=== PATIENT | female | born 1960 | race Caucasian/White ===

== ENCOUNTER 2020-01-18 00:50 | Inpatient (IN) | payer MEDICARE, MEDICAID, SELFPAY ==
[2020-01-18] VITALS (147 sets, daily range): BP systolic 86–184; BP diastolic 45–139; PULSE 55–129; RESP 12–18; TEMP 36.4–37.4; O2SAT 88–100; BMI 60.2; BMI 52.3
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
--- NOTE | 2020-01-18 01:04 | ECG_ITS ---
Measurements Intervals [place] Rate: 96 P: 66 NV: 141 QRS: 72 QRSD: 83 T: 40 QT: 347 QTc: 440 SINUS RHYTHM LOW QRS VOLTAGE IN PRECORDIAL LEADS [QRS DEFLECTION < 1.0 mV IN CHEST LEADS] POSSIBLE RIGHT VENTRICULAR CONDUCTION DELAY [RSR (QR) IN V1/V2] Compared to ECG 11/01/2018 14:57:16 Low QRS voltage now present Atrial fibrillation no longer present Electronically Signed On 01-18-2020 17:10:33 CDT by Terrance Hancock M.D. [email or web address]
[2020-01-18 01:17] LABS: ABG PCO2 77.3 mmHg (35-45); ABG PH Result 7.28 (7.35-7.45); Arterial Blood Gas Hematocrit 41.7 % (37-47); Base Excess ABG 6.9 mmol/L (-2.0-2.0); Blood Gas Allen Test Pos; Blood Gas Sample Site Radial, right; Blood Gas Sample Type Arterial; HCO3 ABG 36.6 mmol/L (22-26); PO2 ABG 63.4 mmHg (80.0-100.0)
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
[2020-01-18] MEDS: sodium chloride 0.9% 1,000 ML 999 ML IV (01:25)
[2020-01-18] MEDS: succinylcholine 20 mg/mL SDV 10mL 200 MG IVP (01:29)
[2020-01-18 01:33] LABS: Basophils # 0.1 10^3/uL (0.0-0.1); Basophils % 0.5 %; Eosinophils # 0.2 10^3/uL (0.0-0.8); Eosinophils % 1.7 %; Hematocrit 46.9 % (37.0-47.0); Hemoglobin 14.1 g/dL (11.5-15.3); Lymphocytes # 1.9 10^3/uL (0.8-4.8); Mean Corpuscular HGB Conc 30.1 g/dL (30.0-36.0); Mean Corpuscular Hemoglobin 29.4 pg (28.0-34.0); Mean Corpuscular Volume 97.9 fL (81-99); Mean Platelet Volume 10.3 fL (7.4-10.4); Monocytes # 0.6 10^3/uL (0.2-0.9); Monocytes % 6.3 %; Neutrophils # 7.1 10^3/uL (1.8-7.7); Neutrophils % 72.1 %; Nucleated Red Blood Cells % 0 %; Platelet Count 281 10^3/cmm (130-400); Red Blood Count 4.79 10^6/uL (4.1-5.3); Red Cell Distribution Width 15.2 % (12.1-15.1); White Blood Count 9.9 10^3/uL (4.0-10.0)
[2020-01-18] MEDS: LORazepam 2 mg/mL INJ 1 mL IVP (01:40)
[2020-01-18 01:52] LABS: Alanine Aminotransferase 10 U/L (0-33); Albumin Level 4.3 g/dL (3.5-5.2); Alkaline Phosphatase 63 IU/L (35-105); Anion Gap 14.1 (5-19); Aspartate Amino Transferase 15 U/L (0-32); Blood Urea Nitrogen 10 mg/dL (8-23); Calcium 9.6 mg/dL (8.5-10.5); Carbon Dioxide 33 mmol/L (22-29); Chloride 94 mmol/L (98-107); Globulin 3.6 g/dL (1.3-4.6); Glucose 179 mg/dL (65-115); Osmolality Calculated 284 mOsm/kg (285-295); Potassium 4.1 mmol/L (3.5-5.1); Sodium 137 mmol/L (136-145); Total Bilirubin 0.5 mg/dL (0.15-1.2); Total Protein 7.9 g/dL (6.6-8.7)
[2020-01-18 01:54] LABS: Troponin(5th) Baseline 11 ng/mL (0-10)
[2020-01-18] MEDS: vecuronium 10 mg SDV 15.4221 MG IVP (02:00)
[2020-01-18] MEDS: ipratropium-albuterol 3 mL Neb 9 ML INHALATION (02:02)
[2020-01-18] MEDS: fentaNYL 50 mcg/mL INJ 2mL 100 MCG IVP (02:04)
[2020-01-18] MEDS: propofol 1,000 MG/100 ML INJ 9.3 MG IV (02:09)
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
[2020-01-18 02:38] LABS: ABG PH Result 7.28 (7.35-7.45); Base Excess ABG 4.7 mmol/L (-2.0-2.0); Blood Gas Allen Test Pos; Blood Gas Sample Site Radial, left; Blood Gas Sample Type Arterial; HCO3 ABG 33.8 mmol/L (22-26); Oxygen Device VENT; PO2 ABG 89.5 mmHg (80.0-100.0)
[2020-01-18 02:39] LABS: ABG PCO2 72.3 mmHg (35-45)
--- NOTE | 2020-01-18 03:05 | PC.NURSE ---
called report to ICU but was told they would call me back at 0243
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
--- NOTE | 2020-01-18 03:27 | ECG_ITS ---
Measurements Intervals [place] Rate: 61 P: 58 [place]: 150 QRS: 39 QRSD: 82 T: 48 QT: 446 QTc: 450 SINUS RHYTHM POSSIBLE LEFT ATRIAL ENLARGEMENT [-0.1mV P WAVE IN V1/V2] LOW QRS VOLTAGE IN PRECORDIAL LEADS [QRS DEFLECTION < 1.0 mV IN CHEST LEADS] Compared to ECG 11/01/2018 14:57:16 Low QRS voltage now present Atrial fibrillation no longer present Electronically Signed On 01-18-2020 17:19:21 CDT by Terrance Hancock M.D. [email or web address]
[2020-01-18] MEDS: sodium chloride 0.9% 1,000 ML 100 ML IV (03:30)
[2020-01-18] MEDS: dextrose 5%-lactated ringers 1,000 ML 75 ML IV ×2 (04:31→15:31)
[2020-01-18] MEDS: enoxaparin 40 mg/0.4 mL Syringe SUBCUT (04:31)
[2020-01-18] MEDS: neomycin-poly-bacitracin oint 28 gm 1 APPLIC TOPICAL (04:33)
[2020-01-18 05:07] LABS: Troponin 5 2HR 9.62 ng/mL (0-10)
[2020-01-18 05:07] LABS: ABG PCO2 58.1 mmHg (35-45); ABG PH Result 7.37 (7.35-7.45); Arterial Blood Gas Hematocrit 41.6 % (37-47); Blood Gas Allen Test Pos; Blood Gas Sample Site Radial, right; Blood Gas Sample Type Arterial; Blood Gas Tidal Volume 0.5; HCO3 ABG 33.2 mmol/L (22-26); Oxygen Device VENT
[2020-01-18 05:09] LABS: Troponin 5 2HR Delta -1.38 ABS# (0-10)
[2020-01-18 05:31] LABS: Glucose Point of Care 260 mg/dL (70-110)
--- NOTE | 2020-01-18 06:08 | PC.NURSE ---
SHIFT SUMMARY PT HAS REMAINED SEDATED SINCE ARRIVING TO FLOOR VIA GURNEY FROM ER AT 0344. PT LUNGS CLEAR. PT WAS GIVEN SPONGE BATH ON ARRIVAL WELL. IVS REMAIN PATENT.
--- NOTE | 2020-01-18 06:43 | PC.NURSE ---
Addendum entered by Marielos Phillips RN 01/18/20 06:45: Witnessed waste of 63mL of Fentanyl by Libby Mcgraw RN Original Note: 63 MLS OF FENTANYL WASTED WITH TOYIN LEE.
--- NOTE | 2020-01-18 06:55 | XR_ITS ---
WS: [id number] XR chest 1V portable [id number] REASON FOR EXAM: readjusted ET tube FINDINGS: Endotracheal tube is seen in good position again. Feeding tube is seen in good position in the stomach. There is hypoaerated lungs as compared to previous exam. There is slight increased heart size. XR/XR chest 1V portable [id number] IMPRESSION: Endotracheal tube satisfactory position There appears to be hypoaeration of the lungs.
[2020-01-18] MEDS: propofol 1,000 MG/100 ML INJ 37 MG IV (07:06)
--- NOTE | 2020-01-18 07:27 | ECG_ITS ---
Measurements Intervals [place] Rate: 57 P: 63 [place]: 151 QRS: 52 QRSD: 83 T: 60 QT: 459 QTc: 448 SINUS BRADYCARDIA WITH SINUS ARRHYTHMIA POSSIBLE LEFT ATRIAL ENLARGEMENT [-0.1mV P WAVE IN V1/V2] LOW QRS VOLTAGE IN PRECORDIAL LEADS [QRS DEFLECTION < 1.0 mV IN CHEST LEADS] Compared to ECG 11/01/2018 14:57:16 Low QRS voltage now present Atrial fibrillation no longer present Electronically Signed On 01-18-2020 17:20:33 CDT by Terrance Hancock M.D. [id number]
[2020-01-18 07:44] LABS: Troponin 5 6HR 8.39 ng/mL (0-10)
[2020-01-18 08:13] LABS: Troponin 5 6HR Delta -2.61 ng/L (0-12)
[2020-01-18] MEDS: ipratropium-albuterol 3 mL Neb INHALATION ×3 (08:13→20:20)
[2020-01-18] MEDS: levothyroxine 112 mcg Tablet PO (09:27)
[2020-01-18] MEDS: levofloxacin-dextrose 5 % 750 MG/150 ML PREMIX 100 MG IV (09:27)
[2020-01-18] MEDS: pantoprazole 40 mg SDV IVP (09:27)
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
[2020-01-18] MEDS: chlorhexidine gluconate 4% Btl 118 mL 1 APPLIC TOPICAL (09:33)
[2020-01-18] MEDS: propofol 1,000 MG/100 ML INJ 32.4 MG IV (09:34)
[2020-01-18] MEDS: guaiFENesin-codeine UDC 10 mL OG-TUBE (10:32)
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
[2020-01-18] MEDS: lidocaine 1% INJ 20 mL XX (12:28)
[2020-01-18] MEDS: midazolam 1 mg/mL INJ 2 mL 2 MG (12:46)
--- NOTE | 2020-01-18 12:56 | P.PCN_ITS ---
Procedure/Consent Time out: Time Out Performed: Yes Procedure Narrative: Name of the procedure: Indirect laryngoscopy with glidescope Indication: The patient is sedated with propofol and fentanyl, Versed 1 mg, fentanyl 25 mcg bolus Description of the procedure: After appropriate sedation the patient was positioned optimally. The endotracheal tube was moved to the angle of the mouth on the right side. The glide scope was then lubricated and introduced in the o ral cavity. The base of the tongue was displaced anteriorly and the endotracheal tube was seen to be going through the vocal cords into the trachea. There was erythema and swelling of the epiglottis as well as arytenoid cartilages. Once the balloon was deflated, there was air leak around the endotracheal tube. Complications: None Acute Procedures Epistaxis Control: Time out performed: Yes
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
[2020-01-18] MEDS: propofol 1,000 MG/100 ML INJ 25.9 MG IV ×2 (13:15→17:17)
[2020-01-18 14:10] LABS: Glucose Point of Care 290 mg/dL (70-110)
[2020-01-18 15:06] LABS: ABG PH Result 7.29 (7.35-7.45); Arterial Blood Gas Hematocrit 42.8 % (37-47); Blood Gas Allen Test Pos; Blood Gas Sample Site Radial, left; Blood Gas Sample Type Arterial; HCO3 ABG 32.9 mmol/L (22-26); Oxygen Device VENT
[2020-01-18] MEDS: nystatin cream 30 gm 1 APPLIC TOPICAL (15:26)
--- NOTE | 2020-01-18 18:00 | PC.NURSE ---
FENTANYL GTT STARTED AT 0915 PER ORDER RAN AT 100MG / HR OR 10 CC FOR 10 HRS, NEW BAG UP 1745 WITH NO WASTE PRESENT. BRONCH DONE AT 1215, VERSED 2MG GIVEN PER ORDER AND FENTANYL DRIP INCREASED TO 150MG /HR FOR 15 MIN FOR PROCEEDURE. TIME OUT PERFORMED PRIOR TO BRONCH VERIFIYING PROCEEDURE AND PATIENT. SKING DRY AND CRACKING ON FEET AND LEGS WERE LOTIONED, PERICARE PERFORMED AND TURN LIFT SLIDING SHEET PLACED DUE TO BARIATRIC NATURE OF PATIENT. PATIENT TURNED Q2 USING PILLOWS. INTRADRY AG UNDER BREASTS AND IN THIGH AREA, ANTIFUNGAL CREAM PLACED IN PANUS FOLDS. SEVERAL FAMILY MEMBERS UPDATED. HER SISTER IN LAW IS HER EROSION CONTROL COORDINATOR AT HOME AND KNOWS THE MOST ABOUT HER. IT WAS NOT UNTIL 1700 THAT ANYONE WAS ABLE TO TELL ME THAT SHE USES [facility] IN [place]. WHEN I CALLED I GOT A BUSY SIGNAL AND THEN NO ANSWER.
[2020-01-18 19:02] LABS: Glucose Point of Care 262 mg/dL (70-110)
[2020-01-18 20:30] LABS: Glucose Point of Care 270 mg/dL (70-110)
[2020-01-18] MEDS: propofol 1,000 MG/100 ML INJ 18.5 MG IV (21:47)
[2020-01-19] VITALS (61 sets, daily range): BP systolic 91–188; BP diastolic 49–131; PULSE 48–110; RESP 12–20; TEMP 36.6–37.3; O2SAT 54–98; BMI 52.3
[2020-01-19] MEDS: propofol 1,000 MG/100 ML INJ 46.3 MG IV ×4 (01:09→08:58)
[2020-01-19 01:40] LABS: Glucose Point of Care 229 mg/dL (70-110)
[2020-01-19] MEDS: ipratropium-albuterol 3 mL Neb INHALATION ×4 (03:01→20:19)
[2020-01-19 03:52] LABS: ABG PH Result 7.36 (7.35-7.45); Base Excess ABG 6.7 mmol/L (-2.0-2.0); Blood Gas Allen Test Pos; Blood Gas Sample Site Brachial, left; Blood Gas Sample Type Arterial; Carboxyhemoglobin 0.3 %THgb (0.4-20.1); Fractionated Inspired Oxygen 0.6 %; HCO3 ABG 34.4 mmol/L (22-26); HGB O2 Sat 96.9 % (95-100); Oxygen Device VENT; Total Hemoglobin 13.7 g/dL (12-16)
[2020-01-19 03:54] LABS: ABG PCO2 61.6 mmHg (35-45)
[2020-01-19] MEDS: enoxaparin 40 mg/0.4 mL Syringe SUBCUT (04:06)
[2020-01-19 04:55] LABS: Basophils % 0.1 %; Hematocrit 44.5 % (37.0-47.0); Hemoglobin 13.1 g/dL (11.5-15.3); Lymphocytes # 0.7 10^3/uL (0.8-4.8); Lymphocytes % 5.6 %; Mean Corpuscular HGB Conc 29.4 g/dL (30.0-36.0); Mean Corpuscular Hemoglobin 28.7 pg (28.0-34.0); Mean Corpuscular Volume 97.6 fL (81-99); Mean Platelet Volume 10.1 fL (7.4-10.4); Monocytes # 0.6 10^3/uL (0.2-0.9); Monocytes % 4.9 %; Neutrophils # 10.9 10^3/uL (1.8-7.7); Neutrophils % 88.9 %; Nucleated Red Blood Cells % 0 %; Platelet Count 259 10^3/cmm (130-400); Red Blood Count 4.56 10^6/uL (4.1-5.3); Red Cell Distribution Width 15.3 % (12.1-15.1); White Blood Count 12.2 10^3/uL (4.0-10.0)
[2020-01-19 05:11] LABS: Alanine Aminotransferase 8 U/L (0-33); Albumin Level 3.6 g/dL (3.5-5.2); Alkaline Phosphatase 50 IU/L (35-105); Anion Gap 14.6 (5-19); Aspartate Amino Transferase 11 U/L (0-32); Blood Urea Nitrogen 14 mg/dL (8-23); Calcium 9.8 mg/dL (8.5-10.5); Carbon Dioxide 31 mmol/L (22-29); Chloride 95 mmol/L (98-107); Globulin 3.5 g/dL (1.3-4.6); Glomerular Filtration Rate 125.9 mL/min (90-130); Glucose 279 mg/dL (65-115); Osmolality Calculated 288 mOsm/kg (285-295); Potassium 4.6 mmol/L (3.5-5.1); Sodium 136 mmol/L (136-145); Total Bilirubin 0.2 mg/dL (0.15-1.2); Total Protein 7.1 g/dL (6.6-8.7)
[2020-01-19] MEDS: dextrose 5%-lactated ringers 1,000 ML 75 ML IV (05:21)
--- NOTE | 2020-01-19 06:00 | XR_ITS ---
WS: [id number] XR chest 1V portable [id number] REASON FOR EXAM: Hypoxia FINDINGS: The endotracheal tube is seen similar position to previous exam. The feeding tube is seen in the stomach. The lung mello are hypoaerated. No definite pneumonia, pulmonary edema, or pleural effusion. XR/XR chest 1V portable [id number] IMPRESSION: Adequate positioning of the endotracheal tube.
--- NOTE | 2020-01-19 06:33 | PC.NURSE ---
SHIFT SUMMARY PT HAS REMAINED INTUBATED AND SEDATED. PT HAS HAD ADEQUATE URINE OUTPUT. PT IV REMAINS PATENT. PT HAS BEEN TURNED PERIODICALLY. FENTANYL AND PROPOFOL REMAIN ON.
[2020-01-19] MEDS: levofloxacin-dextrose 5 % 750 MG/150 ML PREMIX 100 MG IV (08:57)
[2020-01-19] MEDS: pantoprazole 40 mg SDV IVP (08:57)
[2020-01-19] MEDS: levothyroxine 112 mcg Tablet PO (08:58)
[2020-01-19] MEDS: chlorhexidine gluconate 4% Btl 118 mL 1 APPLIC TOPICAL (08:58)
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
[2020-01-19] MEDS: nystatin cream 30 gm 1 APPLIC TOPICAL ×2 (09:03→18:43)
[2020-01-19 09:37] LABS: Glucose Point of Care 342 mg/dL (70-110)
[2020-01-19] MEDS: propofol 1,000 MG/100 ML INJ 41.6 MG IV (11:25)
[2020-01-19 12:18] LABS: Glucose Point of Care 331 mg/dL (70-110)
[2020-01-19] MEDS: dexmedetomidine 400 MCG in sodium chloride 0.9% (100 ml) 100 ML 10.5 MCG IV (15:20)
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
[2020-01-19] MEDS: propofol 1,000 MG/100 ML INJ 18.5 MG IV (15:52)
[2020-01-19 16:38] LABS: Glucose Point of Care 253 mg/dL (70-110)
[2020-01-19 18:43] LABS: Glucose Point of Care 243 mg/dL (70-110)
[2020-01-19] MEDS: propofol 1,000 MG/100 ML INJ 13.9 MG IV (21:23)
--- NOTE | 2020-01-19 23:03 | PC.NURSE ---
1900 bedside report rcvd at this time. vss per cm. diprivan at 15 mcg/kg/min . fentanyl @ 100 mcg/hr. pt awake and following commands but calm. soft wrist restraints in place . mireya penn.
[2020-01-20] VITALS (37 sets, daily range): BP systolic 105–173; BP diastolic 68–115; PULSE 48–151; RESP 8–24; TEMP 36.7–37.1; O2SAT 83–100; BMI 50.5
[2020-01-20 00:12] LABS: Glucose Point of Care 228 mg/dL (70-110)
[2020-01-20] MEDS: propofol 1,000 MG/100 ML INJ 13.9 MG IV (02:23)
[2020-01-20] MEDS: ipratropium-albuterol 3 mL Neb INHALATION ×4 (02:57→20:50)
[2020-01-20] MEDS: enoxaparin 40 mg/0.4 mL Syringe SUBCUT (04:23)
[2020-01-20 05:55] LABS: ABG PCO2 53.8 mmHg (35-45); ABG PH Result 7.45 (7.35-7.45); Arterial Blood Gas Hematocrit 41.5 % (37-47); Blood Gas Allen Test Pos; Blood Gas Sample Site Radial, left; Blood Gas Sample Type Arterial; HCO3 ABG 37.1 mmol/L (22-26); Oxygen Device VENT; PO2 ABG 83.3 mmHg (80.0-100.0)
--- NOTE | 2020-01-20 06:00 | XR_ITS ---
WS: [id number] XR chest 1V portable [id number] REASON FOR EXAM: Hypoxia FINDINGS: Endotracheal tube is seen in good position. A feeding tube is seen extending down into the stomach region. There is mild vascular redistribution changes and mild edema. The heart is slightly enlarged. XR/XR chest 1V portable [id number] IMPRESSION: Endotracheal tube satisfactory position Mild interstitial pulmonary edema. Cardiomegaly.
[2020-01-20 06:15] LABS: Glucose Point of Care 156 mg/dL (70-110)
[2020-01-20 08:54] LABS: Glucose Point of Care 135 mg/dL (70-110)
[2020-01-20 09:27] LABS: Alanine Aminotransferase 14 U/L (0-33); Albumin Level 3.5 g/dL (3.5-5.2); Alkaline Phosphatase 48 IU/L (35-105); Anion Gap 10.6 (5-19); Aspartate Amino Transferase 22 U/L (0-32); Blood Urea Nitrogen 18 mg/dL (8-23); Calcium 10.3 mg/dL (8.5-10.5); Carbon Dioxide 36 mmol/L (22-29); Chloride 93 mmol/L (98-107); Globulin 3.6 g/dL (1.3-4.6); Glomerular Filtration Rate 125.9 mL/min (90-130); Glucose 155 mg/dL (65-115); Osmolality Calculated 282 mOsm/kg (285-295); Potassium 3.6 mmol/L (3.5-5.1); Sodium 136 mmol/L (136-145); Total Bilirubin 0.2 mg/dL (0.15-1.2); Total Protein 7.1 g/dL (6.6-8.7)
[2020-01-20] MEDS: pantoprazole 40 mg SDV IVP (09:30)
[2020-01-20] MEDS: levofloxacin-dextrose 5 % 750 MG/150 ML PREMIX 100 MG IV (09:30)
[2020-01-20] MEDS: LORazepam 2 mg/mL INJ 1 mL 1 MG IVP (09:31)
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
--- NOTE | 2020-01-20 16:25 | PC.RESP ---
Smoking Cessation and Pulmonary Rehab information mailed to patient with a schedule of classes.
--- NOTE | 2020-01-20 19:17 | PC.NURSE ---
bedside report pt rcvd at this time vss per cm. pt resting supine in bed . smiles when asked orientation questions but no answer . sitter at bedside. Jose paniagua rn.
[2020-01-20] MEDS: morphine 4 mg/mL SDV 1 mL 2 MG IVP (19:49)
[2020-01-20 20:07] LABS: Glucose Point of Care 229 mg/dL (70-110)
--- NOTE | 2020-01-20 22:04 | PC.NURSE ---
pt noted per cm to be in a fib c rvr 140-175 . ekg done at this time. rt to place bipap . lv notified. order rcvd for metoprolol 5mg ivp. mireya penn.
--- NOTE | 2020-01-20 22:09 | PC.NURSE ---
order for cardizem 10 ivp placed per md gomes.
[2020-01-21] VITALS (48 sets, daily range): BP systolic 92–157; BP diastolic 65–101; PULSE 77–610; RESP 8–24; TEMP 36.7; O2SAT 80–99
[2020-01-21] MEDS: morphine 4 mg/mL SDV 1 mL 2 MG IVP ×5 (02:40→22:04)
[2020-01-21 04:45] LABS: Glucose Point of Care 168 mg/dL (70-110)
[2020-01-21] MEDS: enoxaparin 40 mg/0.4 mL Syringe SUBCUT (04:50)
--- NOTE | 2020-01-21 04:56 | PC.NURSE ---
30 cc fentanyl wasted from iv pump with latasha gomes.
[2020-01-21 05:30] LABS: Alanine Aminotransferase 32 U/L (0-33); Albumin Level 3.2 g/dL (3.5-5.2); Alkaline Phosphatase 48 IU/L (35-105); Anion Gap 12.7 (5-19); Aspartate Amino Transferase 46 U/L (0-32); Blood Urea Nitrogen 13 mg/dL (8-23); Carbon Dioxide 35 mmol/L (22-29); Chloride 94 mmol/L (98-107); Globulin 3.3 g/dL (1.3-4.6); Glomerular Filtration Rate 125.9 mL/min (90-130); Glucose 168 mg/dL (65-115); Osmolality Calculated 286 mOsm/kg (285-295); Potassium 3.7 mmol/L (3.5-5.1); Sodium 138 mmol/L (136-145); Total Bilirubin 0.8 mg/dL (0.15-1.2); Total Protein 6.5 g/dL (6.6-8.7)
--- NOTE | 2020-01-21 06:00 | XR_ITS ---
WS: [id number] XR chest 1V portable [id number] REASON FOR EXAM: Hypoxia FINDINGS: Comparison to previous exam of January 20, 2020 the tracheostomy has been removed. The lung mello are adequately aerated. Arteriosclerotic changes in the arch of the aorta. There is no pulmonary edema, pneumonia, pleural effusion. XR/XR chest 1V portable [id number] IMPRESSION: Arteriosclerotic changes The lung mello appear to be adequately aerated.
--- NOTE | 2020-01-21 08:30 | PC.SOCIAL ---
IMM Page 2 of IMM explained to patient. She verbalizes understanding. Initialed, dated, and timed and placed in chart. Copy provided to patient.
[2020-01-21 08:39] LABS: Glucose Point of Care 155 mg/dL (70-110)
--- NOTE | 2020-01-21 08:39 | PC.NURSE ---
frequent bm noted at this time restless and agitated at this time .
[2020-01-21] MEDS: pantoprazole 40 mg SDV IVP (09:15)
[2020-01-21] MEDS: levothyroxine 112 mcg Tablet PO (09:15)
[2020-01-21] MEDS: ipratropium-albuterol 3 mL Neb INHALATION ×3 (09:28→20:27)
[2020-01-21] MEDS: nystatin cream 30 gm 1 APPLIC TOPICAL ×2 (09:38→16:53)
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
[2020-01-21] MEDS: nicotine 14 mg Patch 1 PATCH TRANSDERMA (11:51)
--- NOTE | 2020-01-21 13:00 | PC.NURSE ---
heart rate noted up to [address] orders noted
[2020-01-22] VITALS (42 sets, daily range): BP systolic 113–162; BP diastolic 69–129; PULSE 68–176; RESP 19–36; TEMP 36.7; O2SAT 89–100; BMI 50.5
--- NOTE | 2020-01-22 01:28 | PC.NURSE ---
pt refused accu check at midnight says she had rather not. pt reports pain to face. requesting pain medication. lidocaine applied to face. mireya.
[2020-01-22] MEDS: ipratropium-albuterol 3 mL Neb INHALATION ×2 (02:28→20:07)
[2020-01-22] MEDS: morphine 4 mg/mL SDV 1 mL 2 MG IVP ×5 (02:41→21:02)
--- NOTE | 2020-01-22 03:04 | PC.NURSE ---
IV TO LEFT FOREARM DISLODGED. 20 GA IV TO RIGHT FOREARM STARTED X 1 ATTEMPT . + BLOOD RETURN. PT TOLERATED S CO PAIN. BLANCA. TOYIN
--- NOTE | 2020-01-22 05:25 | PC.NURSE ---
pt oob for bath this am. pt had partially independent bed bath. linen change done at this time. vss per cm. pt denies needs. pt ambulating c min assistance. short removed at this time per pt request. jthielman. penn.
[2020-01-22] MEDS: enoxaparin 40 mg/0.4 mL Syringe SUBCUT (05:49)
[2020-01-22 05:50] LABS: Alanine Aminotransferase 27 U/L (0-33); Alkaline Phosphatase 44 IU/L (35-105); Aspartate Amino Transferase 22 U/L (0-32); Blood Urea Nitrogen 10 mg/dL (8-23); Calcium 9.4 mg/dL (8.5-10.5); Carbon Dioxide 29 mmol/L (22-29); Chloride 94 mmol/L (98-107); Globulin 3.4 g/dL (1.3-4.6); Glomerular Filtration Rate 162.8 mL/min (90-130); Glucose 191 mg/dL (65-115); Osmolality Calculated 277 mOsm/kg (285-295); Sodium 133 mmol/L (136-145); Total Bilirubin 0.7 mg/dL (0.15-1.2); Total Protein 6.4 g/dL (6.6-8.7)
[2020-01-22 05:51] LABS: Magnesium 2.1 mg/dL (1.7-2.3)
[2020-01-22 07:36] LABS: Glucose Point of Care 157 mg/dL (70-110)
[2020-01-22 07:36] LABS: Glucose Point of Care 191 mg/dL (70-110)
[2020-01-22 07:36] LABS: Glucose Point of Care 193 mg/dL (70-110)
[2020-01-22 07:36] LABS: Glucose Point of Care 223 mg/dL (70-110)
[2020-01-22 07:36] LABS: Glucose Point of Care 192 mg/dL (70-110)
[2020-01-22] MEDS: metoprolol tartrate 1 mg/1 mL SDV 5 mL 5 MG IV (08:03)
--- NOTE | 2020-01-22 08:09 | PC.NURSE ---
heart rate up to 170 at this time iv med given monitor vs
[2020-01-22] MEDS: nicotine 14 mg Patch 1 PATCH TRANSDERMA (08:47)
[2020-01-22] MEDS: pantoprazole 40 mg SDV IVP (08:48)
[2020-01-22] MEDS: chlorhexidine gluconate 4% Btl 118 mL 1 APPLIC TOPICAL (08:48)
[2020-01-22] MEDS: levothyroxine 112 mcg Tablet PO (08:48)
[2020-01-22] MEDS: nystatin cream 30 gm 1 APPLIC TOPICAL (08:49)
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
[2020-01-22] MEDS: metoprolol tartrate 25 mg Tablet PO ×2 (11:29→21:28)
[2020-01-22 11:30] LABS: Glucose Point of Care 229 mg/dL (70-110)
[2020-01-22 17:37] LABS: Glucose Point of Care 187 mg/dL (70-110)
[2020-01-23] VITALS (34 sets, daily range): BP systolic 115–168; BP diastolic 73–122; PULSE 61–177; RESP 15–35; TEMP 36.8; O2SAT 85–99; BMI 50.5
[2020-01-23] MEDS: morphine 4 mg/mL SDV 1 mL 2 MG IVP ×2 (01:23→06:03)
[2020-01-23 05:16] LABS: Glucose Point of Care 168 mg/dL (70-110)
[2020-01-23] MEDS: enoxaparin 40 mg/0.4 mL Syringe SUBCUT (06:03)
[2020-01-23] MEDS: apixaban 5 mg Tablet PO ×2 (08:49→17:16)
[2020-01-23] MEDS: clopidogrel 75 mg Tablet PO (08:50)
[2020-01-23] MEDS: metoprolol tartrate 50 mg Tablet PO (08:50)
[2020-01-23] MEDS: levothyroxine 112 mcg Tablet PO (08:50)
[2020-01-23] MEDS: FUROsemide 40 mg Tablet PO (08:50)
[2020-01-23] MEDS: nicotine 14 mg Patch 1 PATCH TRANSDERMA (08:50)
[2020-01-23] MEDS: pantoprazole DR 40 mg Tablet PO (08:50)
[2020-01-23] MEDS: chlorhexidine gluconate 4% Btl 118 mL 1 APPLIC TOPICAL (08:55)
[2020-01-23] MEDS: nystatin cream 30 gm 1 APPLIC TOPICAL ×2 (08:56→17:19)
[2020-01-23 09:55] LABS: Anion Gap 16.2 (5-19); Blood Urea Nitrogen 11 mg/dL (8-23); Calcium 9.1 mg/dL (8.5-10.5); Carbon Dioxide 28 mmol/L (22-29); Chloride 94 mmol/L (98-107); Glomerular Filtration Rate 125.9 mL/min (90-130); Glucose 296 mg/dL (65-115); Osmolality Calculated 285 mOsm/kg (285-295); Potassium 4.2 mmol/L (3.5-5.1); Sodium 134 mmol/L (136-145)
--- NOTE | 2020-01-23 10:10 | PC.NURSE ---
transfer to room icu 6 at this time
--- NOTE | 2020-01-23 10:12 | PC.NURSE ---
heart rate remains elevated at this time po medicine increased
[2020-01-23 11:45] LABS: Glucose Point of Care 181 mg/dL (70-110)
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
[2020-01-23] MEDS: acetaminophen 325 mg Tablet 650 MG PO (11:56)
[2020-01-23 16:47] LABS: Glucose Point of Care 156 mg/dL (70-110)
--- NOTE | 2020-01-23 17:32 | PC.NURSE ---
up in room at this time restless heart rate up to 150s at this time
[2020-01-23] MEDS: metoprolol tartrate 1 mg/1 mL SDV 5 mL 5 MG IV (17:58)
[2020-01-23] MEDS: metoprolol tartrate 50 mg Tablet 75 MG PO (21:18)
[2020-01-24] VITALS (17 sets, daily range): BP systolic 122–184; BP diastolic 63–113; PULSE 71–95; RESP 16–34; TEMP 36.4; O2SAT 90–99
[2020-01-24 00:04] LABS: Glucose Point of Care 156 mg/dL (70-110)
[2020-01-24] MEDS: hyDRALAzine 20 mg/mL INJ 1 mL 10 MG IVP (01:20)
--- NOTE | 2020-01-24 01:35 | PC.NURSE ---
Patient blood pressure was 184/67 at 0100. Doctor was notified and gave orders for Hydralazine 10mg IVP Once. Med was given and bp is now 122/67.
[2020-01-24] MEDS: ipratropium-albuterol 3 mL Neb INHALATION (02:02)
[2020-01-24 04:59] LABS: Basophils % 0.3 %; Eosinophils # 0.2 10^3/uL (0.0-0.8); Eosinophils % 2.5 %; Hematocrit 43.7 % (37.0-47.0); Hemoglobin 13.7 g/dL (11.5-15.3); Lymphocytes # 1.3 10^3/uL (0.8-4.8); Lymphocytes % 13.8 %; Mean Corpuscular HGB Conc 31.4 g/dL (30.0-36.0); Mean Corpuscular Hemoglobin 29.4 pg (28.0-34.0); Mean Corpuscular Volume 93.8 fL (81-99); Monocytes # 0.7 10^3/uL (0.2-0.9); Monocytes % 7.4 %; Neutrophils # 7.2 10^3/uL (1.8-7.7); Neutrophils % 75.3 %; Nucleated Red Blood Cells % 0 %; Platelet Count 297 10^3/cmm (130-400); Red Blood Count 4.66 10^6/uL (4.1-5.3); Red Cell Distribution Width 14.7 % (12.1-15.1); White Blood Count 9.5 10^3/uL (4.0-10.0)
[2020-01-24 05:15] LABS: Anion Gap 15.9 (5-19); Blood Urea Nitrogen 7 mg/dL (8-23); Carbon Dioxide 28 mmol/L (22-29); Chloride 97 mmol/L (98-107); Glomerular Filtration Rate 125.9 mL/min (90-130); Glucose 198 mg/dL (65-115); Osmolality Calculated 285 mOsm/kg (285-295); Potassium 3.9 mmol/L (3.5-5.1); Sodium 137 mmol/L (136-145)
[2020-01-24 05:20] LABS: Glucose Point of Care 239 mg/dL (70-110)
[2020-01-24] MEDS: pantoprazole DR 40 mg Tablet PO (07:56)
[2020-01-24] MEDS: levothyroxine 112 mcg Tablet PO (07:56)
[2020-01-24] MEDS: apixaban 5 mg Tablet PO (07:57)
[2020-01-24] MEDS: clopidogrel 75 mg Tablet PO (07:57)
[2020-01-24] MEDS: FUROsemide 40 mg Tablet PO (07:57)
[2020-01-24] MEDS: metoprolol tartrate 50 mg Tablet 75 MG PO (07:57)
[2020-01-24] MEDS: nicotine 14 mg Patch 1 PATCH TRANSDERMA (07:58)
[2020-01-24] MEDS: chlorhexidine gluconate 4% Btl 118 mL 1 APPLIC TOPICAL (07:59)
[2020-01-24] MEDS: nystatin cream 30 gm 1 APPLIC TOPICAL (07:59)
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
[2020-01-24 08:14] LABS: Glucose Point of Care 183 mg/dL (70-110)
[2020-01-24 11:12] LABS: Glucose Point of Care 278 mg/dL (70-110)
[2020-01-24] MEDS: amlodipine 5 mg Tablet PO (12:30)
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
--- NOTE | 2020-01-24 14:17 | PC.NURSE ---
DISCHARGE IV removed. 2x2 applied with coban. Discharge instructions given and patient verbalized understanding. Medication sent to pharmacy. All belongings sent with patient.
== END 2020-01-24 14:19 | disposition home or self-care (01) | DRG 935 ==
LOC: ER 01:54 → ICU 02:17
PROVIDERS: Internal Medicine; Internal Medicine Critical Care Medicine; Admitting Provider Internal Medicine; Emergency Provider Emergency Medicine; Family Provider Nurse Practitioner Family; Visit Provider Internal Medicine
PROC: 0BJ08ZZ Inspection of Tracheobronchial Tree, Via Natural or Artificial Opening Endoscopic (ICD-10-PCS; CPT 31622; principal; 2020-01-18 12:15)
DX: T20.22XA Burn of second degree of lip(s), initial encounter (principal); J96.21 Acute and chronic respiratory failure with hypoxia; J96.22 Acute and chronic respiratory failure with hypercapnia; Z68.43 Body mass index [BMI] 50.0-59.9, adult; G93.40 Encephalopathy, unspecified; J81.1 Chronic pulmonary edema; X08.8XXA Exposure to other specified smoke, fire and flames, initial encounter; J44.9 Chronic obstructive pulmonary disease, unspecified; Z99.81 Dependence on supplemental oxygen; E66.01 Morbid (severe) obesity due to excess calories; E11.9 Type 2 diabetes mellitus without complications; I10 Essential (primary) hypertension; F32.9 Major depressive disorder, single episode, unspecified; Z86.73 Personal history of transient ischemic attack (TIA), and cerebral infarction without residual deficits; E78.5 Hyperlipidemia, unspecified; K21.9 Gastro-esophageal reflux disease without esophagitis; Z86.19 Personal history of other infectious and parasitic diseases; E03.9 Hypothyroidism, unspecified; G47.33 Obstructive sleep apnea (adult) (pediatric); F43.10 Post-traumatic stress disorder, unspecified; F17.210 Nicotine dependence, cigarettes, uncomplicated; J04.10 Acute tracheitis without obstruction; F60.3 Borderline personality disorder; Z79.51 Long term (current) use of inhaled steroids; Z79.4 Long term (current) use of insulin; Z79.02 Long term (current) use of antithrombotics/antiplatelets; Z79.01 Long term (current) use of anticoagulants; Z79.891 Long term (current) use of opiate analgesic; I48.91 Unspecified atrial fibrillation
CPT/HCPCS: 12345; 31622; 31624; 36415; 36416; 36600; 51702; 71045; 80048; 80053; 82803; 82805; 82962; 83735; 84443; 84484; 85025; 87070; 92523; 92526; 92610; 93005; 94002; 94003; 94640; 94660; 94799; 96372; 96375; 97110; 97116; 97162; 99284; A4570; C9113; J0330; J0360; J1650; J1815; J1956; J2001; J2060; J2250; J2270; J2704; J2930; J3010; J3490; J7030

== ENCOUNTER → 2021-03-14 13:39 | Outpatient (BNVA) | payer MEDICARE, MEDICAID, SELFPAY | PROVIDERS: Family Provider Nurse Practitioner Family; Visit Provider Specialist | DX: M17.12 Unilateral primary osteoarthritis, left knee (principal) | CPT/HCPCS: 73560; 73565 ==

== ENCOUNTER → 2022-02-07 09:54 | Outpatient (BNVA) | payer MEDICARE, MEDICAID, SELFPAY | PROVIDERS: Family Provider Nurse Practitioner Family; Visit Provider Specialist | DX: M17.12 Unilateral primary osteoarthritis, left knee (principal) | CPT/HCPCS: 20610; 73560; 73565; 99213; J1100; J2795; J3301; J7325 ==

== ENCOUNTER 2022-11-05 09:47 | Oncology outpatient (recurring) (ONCR) | payer MEDICARE, MEDICAID, SELFPAY ==
[2022-11-05 11:40] LABS: Basophils # 0.1 10^3/uL (0.0-0.1); Basophils % 0.6 %; Eosinophils # 0.1 10^3/uL (0.0-0.8); Eosinophils % 0.5 %; Hematocrit 53.1 % (37.0-47.0); Hemoglobin 17.5 g/dL (11.5-15.3); Lymphocytes # 1.9 10^3/uL (0.8-4.8); Lymphocytes % 16.5 %; Mean Corpuscular Hemoglobin 35.6 pg (28.0-34.0); Mean Corpuscular Volume 108.1 fl (81-99); Mean Platelet Volume 9.4 fL (7.4-10.4); Monocytes # 0.9 10^3/uL (0.2-0.9); Monocytes % 7.9 %; Neutrophils # 8.31 10^3/uL (1.8-7.7); Neutrophils % 74.1 %; Nucleated Red Blood Cells % 0 %; Platelet Count 339 10^3/cmm (130-400); Red Blood Count 4.91 10^6/uL (4.1-5.3); Red Cell Distribution Width 13.3 % (12.1-15.1); White Blood Count 11.2 10^3/uL (4.0-10.0)
[2022-11-05 12:28] LABS: Alanine Aminotransferase 21 U/L (0-33); Albumin Level 3.8 g/dL (3.5-5.2); Alkaline Phosphatase 69 U/L (35-105); Anion Gap 17.6 (5-19); Aspartate Amino Transferase 16 U/L (0-32); Blood Urea Nitrogen 17 mg/dL (8-23); Calcium 9.4 mg/dL (8.5-10.5); Carbon Dioxide 23 mmol/L (22-29); Chloride 99 mmol/L (98-107); Globulin 3.4 g/dL (1.3-4.6); Glomerular Filtration Rate 63.4 mL/min (90-130); Glucose 164 mg/dL (65-115); Iron 88 ug/dL (37-145); Lactate Dehydrogenase 173 U/L (135-214); Osmolality Calculated 287 mOsm/kg (285-295); Percent Saturation 25.6 % (20-50); Potassium 3.6 mmol/L (3.5-5.1); Sodium 136 mmol/L (136-145); Total Bilirubin 0.7 mg/dL (0.15-1.2); Total Iron Binding Capacity 343 mcg/dl; Total Protein 7.2 g/dL (6.6-8.7); Unsaturated Iron Binding 255 ug/dL (112-347); Vitamin B12 615 pg/mL (232-1245)
[2022-11-05 12:29] LABS: Folate Level 6.2 ng/mL (4.8-37.3)
[2022-11-06 17:18] LABS: Erythropoietin 15.8 mIU/mL (2.6-18.5)
[2022-11-06 21:34] LABS: HEP C RNA Viral Load Quant <1.18 NOT DETECTED Log IU/mL (NOT DETECTED); HEP C RNA Viral Load Quant <15 NOT DETECTED IU/mL (NOT DETECTED)
[2022-11-15 23:34] LABS: CALR Exon 9 Mutation NOT DETECTED (NOT DETECTED); CSF3R Exon 14/17 Mutation NOT DETECTED (NOT DETECTED); JAK2 Exon 12 Mutation NOT DETECTED (NOT DETECTED); JAK2 V617 Block Specimen ID NG; JAK2 V617 Clinical Indication NG; JAK2 V617 Mutation NOT DETECTED (NOT DETECTED); JAK2 V617 Specimen Source NG; MPL Exon 12 Mutation NOT DETECTED (NOT DETECTED)
== END 2022-11-12 23:59 | disposition home or self-care (01) ==
LOC: ONCMED 09:48
PROVIDERS: PCP Nurse Practitioner Family; Visit Provider Internal Medicine Medical Oncology
DX: R71.8 Other abnormality of red blood cells (principal); R63.4 Abnormal weight loss; Z68.38 Body mass index [BMI] 38.0-38.9, adult; R53.83 Other fatigue; B19.20 Unspecified viral hepatitis C without hepatic coma; F17.210 Nicotine dependence, cigarettes, uncomplicated
CPT/HCPCS: 36415; 80053; 81219; 81270; 81339; 81403; 81479; 82607; 82668; 82746; 83540; 83550; 83615; 85025; 87522; 99205

== ENCOUNTER 2023-02-04 07:01 | Outpatient (CLI) | payer MEDICARE, MEDICAID, SELFPAY ==
--- NOTE | 2023-02-04 08:30 | CT_ITS ---
WS: [id number] LDCT LUNG CANCER SCREENING TECHNIQUE: Noncontrast CT of the chest with coronal and sagittal reformatted images. CLINICAL INFORMATION: history of smokin DLP: 102.81 mGy.cm DIvol: Mean CTDIvol: 2.70 (mGy) All CT scans at [facility] use at least one of these dose optimization techniques: automat ed exposure control; mA and/or kV adjustment per patient size (includes targeted exams where dose is matched to clinical indication); or iterative reconstruction. FINDINGS: No acute pulmonary infiltrates. Lungs well aerated. Slight subsegmental atelectasis in the lingula. Small RIGHT adrenal adenoma. LEFT adrenal gland is normal. Normal GE junction. Cholecystectomy clips. Noncontrast spleen is normal. Hypertrophic changes thoracic spine. Aortic calcification. Dense aortic atheromatous disease. Coronary calcification. No mediastinal or hi lar lymphadenopathy. CT/CT lung screening [id number] IMPRESSION: LUNG-RADS: 1-Negative FOLLOW UP: 12 Month: Continue annual screening with LDCT
== END 2023-02-04 07:02 | disposition home or self-care (01) ==
LOC: RAD 07:03
PROVIDERS: PCP Nurse Practitioner Family; Visit Provider Internal Medicine Medical Oncology
DX: Z12.2 Encounter for screening for malignant neoplasm of respiratory organs (principal); Z87.891 Personal history of nicotine dependence
CPT/HCPCS: 71271

== ENCOUNTER 2023-03-10 11:56 | Oncology outpatient (recurring) (ONCR) | payer MEDICARE, MEDICAID, SELFPAY ==
[2023-03-10 12:02] VITALS: BP 174/90; PULSE 75; RESP 18; TEMP 36.7; O2SAT 91
[2023-03-10 12:13] LABS: Basophils # 0.1 10^3/uL (0.0-0.1); Eosinophils # 0.2 10^3/uL (0.0-0.8); Eosinophils % 1.8 %; Hematocrit 50.3 % (37.0-47.0); Hemoglobin 16.3 g/dL (11.5-15.3); Lymphocytes % 22.1 %; Mean Corpuscular HGB Conc 32.4 g/dL (30.0-36.0); Mean Corpuscular Hemoglobin 36.1 pg (28.0-34.0); Mean Corpuscular Volume 111.5 fl (81-99); Mean Platelet Volume 8.9 fL (7.4-10.4); Neutrophils # 5.89 10^3/uL (1.8-7.7); Neutrophils % 63.8 %; Nucleated Red Blood Cells % 0 %; Platelet Count 265 10^3/cmm (130-400); Red Blood Count 4.51 10^6/uL (4.1-5.3); Red Cell Distribution Width 12.2 % (12.1-15.1); White Blood Count 9.2 10^3/uL (4.0-10.0)
[2023-03-10 12:32] LABS: Alanine Aminotransferase 40 U/L (0-33); Alkaline Phosphatase 83 U/L (35-105); Aspartate Amino Transferase 27 U/L (0-32); Blood Urea Nitrogen 11 mg/dL (8-23); Calcium 9.6 mg/dL (8.5-10.5); Carbon Dioxide 32 mmol/L (22-29); Chloride 97 mmol/L (98-107); Globulin 3.5 g/dL (1.3-4.6); Glomerular Filtration Rate 161.2 mL/min (90-130); Glucose 85 mg/dL (65-115); Osmolality Calculated 285 mOsm/kg (285-295); Sodium 138 mmol/L (136-145); Total Bilirubin 0.4 mg/dL (0.15-1.2); Total Protein 7.5 g/dL (6.6-8.7)
[2023-03-10 12:34] LABS: Anion Gap 13.5 (5-19); Potassium 4.5 mmol/L (3.5-5.1)
== END 2023-03-14 23:59 | disposition home or self-care (01) ==
PROVIDERS: PCP Nurse Practitioner Family; Visit Provider Internal Medicine Medical Oncology
DX: D75.1 Secondary polycythemia (principal); J96.11 Chronic respiratory failure with hypoxia; J96.12 Chronic respiratory failure with hypercapnia; Z79.51 Long term (current) use of inhaled steroids; Z79.899 Other long term (current) drug therapy; F17.210 Nicotine dependence, cigarettes, uncomplicated
CPT/HCPCS: 36415; 80053; 85025; 99214

== ENCOUNTER → 2023-05-14 08:43 | Outpatient (BNVA) | payer MEDICARE, MEDICAID, SELFPAY | PROVIDERS: PCP Nurse Practitioner Family; Visit Provider Internal Medicine Pulmonary Disease | DX: J96.11 Chronic respiratory failure with hypoxia (principal); J96.12 Chronic respiratory failure with hypercapnia; J44.9 Chronic obstructive pulmonary disease, unspecified; G47.33 Obstructive sleep apnea (adult) (pediatric); Z71.6 Tobacco abuse counseling; F17.210 Nicotine dependence, cigarettes, uncomplicated; Z91.199 Patient's noncompliance with other medical treatment and regimen due to unspecified reason | CPT/HCPCS: 99204 ==

== ENCOUNTER 2023-05-30 06:53 | Outpatient (CLI) | payer MEDICARE, MEDICAID, SELFPAY ==
[2023-05-30] MEDS: albuterol 2.5 mg/3 mL Neb INHALATION (07:38)
[2023-05-30 07:39] VITALS: PULSE 64; RESP 20; O2SAT 98
[2023-05-30 07:45] VITALS: PULSE 61
== END 2023-05-30 06:54 | disposition home or self-care (01) ==
LOC: RT 06:54
PROVIDERS: PCP Nurse Practitioner Family; Visit Provider Internal Medicine Pulmonary Disease
DX: J96.11 Chronic respiratory failure with hypoxia (principal)
CPT/HCPCS: 94060; 94618; 94729; J7613

== ENCOUNTER 2023-06-27 07:57 | Oncology outpatient (recurring) (ONCR) | payer MEDICARE, MEDICAID, SELFPAY ==
[2023-06-27 08:55] LABS: Basophils # 0.1 10^3/uL (0.0-0.1); Eosinophils # 0.1 10^3/uL (0.0-0.8); Eosinophils % 1.2 %; Hematocrit 50.7 % (36-47); Lymphocytes % 27.6 %; Mean Corpuscular HGB Conc 32.1 g/dL (30-55); Mean Corpuscular Hemoglobin 34.8 pg (27-33); Mean Corpuscular Volume 108.3 fl (85-98); Monocytes # 0.7 10^3/uL (0.2-0.9); Monocytes % 10.1 %; Neutrophils # 4.36 10^3/uL (1.8-7.7); Neutrophils % 59.6 %; Nucleated Red Blood Cells % 0 %; Platelet Count 239 10^3/cmm (157-399); Red Blood Count 4.68 10^6/uL (3.85-5.65); Red Cell Distribution Width 17.8 % (12.1-15.1); White Blood Count 7.32 10^3/uL (3.29-11.43)
[2023-06-27 09:13] LABS: Alanine Aminotransferase 17 U/L (0-33); Albumin Level 4.5 g/dL (3.5-5.2); Alkaline Phosphatase 77 U/L (35-105); Anion Gap 12.4 (5-19); Aspartate Amino Transferase 18 U/L (0-32); Blood Urea Nitrogen 22 mg/dL (8-23); Calcium 9.1 mg/dL (8.5-10.5); Carbon Dioxide 31 mmol/L (22-29); Chloride 97 mmol/L (98-107); Globulin 3.2 g/dL (1.3-4.6); Glomerular Filtration Rate 72.4 mL/min (90-130); Glucose 125 mg/dL (65-115); Osmolality Calculated 287 mOsm/kg (285-295); Potassium 4.4 mmol/L (3.5-5.1); Sodium 136 mmol/L (136-145); Total Bilirubin 0.7 mg/dL (0.15-1.2); Total Protein 7.7 g/dL (6.6-8.7)
== END 2023-07-15 23:59 | disposition home or self-care (01) ==
PROVIDERS: Nurse Practitioner Family; PCP Nurse Practitioner Family; Visit Provider Internal Medicine Medical Oncology
DX: D75.1 Secondary polycythemia (principal); R11.2 Nausea with vomiting, unspecified; R63.4 Abnormal weight loss; R61 Generalized hyperhidrosis; J39.2 Other diseases of pharynx; Z85.51 Personal history of malignant neoplasm of bladder
CPT/HCPCS: 80053; 85025; 99214

== ENCOUNTER → 2023-07-14 07:54 | Outpatient (BNVA) | payer MEDICARE, MEDICAID, SELFPAY | PROVIDERS: PCP Nurse Practitioner Family; Visit Provider Otolaryngology | DX: J02.9 Acute pharyngitis, unspecified (principal) | CPT/HCPCS: 31575; 99203; 99204 ==

== ENCOUNTER 2023-07-24 12:51 | Oncology outpatient (recurring) (ONCR) | payer MEDICARE, MEDICAID, SELFPAY ==
--- NOTE | 2023-07-21 08:17 | CT_ITS ---
WS: [id number] CT CHEST, ABDOMEN AND PELVIS WITH CONTRAST HISTORY: weight loss, vomiting, history of bladder cancer, rectal bleeding for 2 months. TECHNIQUE: Contiguous 5 mm axial imaging performed through the chest, abdomen and pelvis IV contrast, oral contrast has been provided. Coronal and sagittal reformats chest. Coronal and sagittal reformat s through the abdomen and pelvis. All CT scans at [facility] use at least one of these dose o ptimization techniques: automated exposure control; mA and/or kV adjustment per patient size (include s targeted exams where dose is matched to clinical indication); or iterative reconstruction. CONTRAST: Omnipaque 350; 100 mL IV. DLP: 1455.97 mGy.cm COMPARISON: 02/04/2023 and 02/16/[address]: Micronodule superior segment RIGHT lower lobe. No interval change. No mass or enlarging nod ule. Mild atherosclerosis aorta. Normal sized pulmonary artery. Heart is normal size. No pericardial or pleural effusion. No adenopathy. No chest wall abnormality. Mild degenerative changes in the midth oracic spine. Abdomen CT: Mild central hepatic duct dilatation and common duct dilatation. Probably on the basis of the cholecystectomy. No hepatic mass. Normal pancreatic duct and pancreas. Normal spleen. Mild thick ening of the RIGHT adrenal gland is stable. Negative Hounsfield units on the unenhanced study from . Normal LEFT adrenal gland. Bilateral low-attenuation masses within each kidney. Majority of these are too small to characterize. The remaining masses appear to be cysts. Nonobstructing 5 mm cesario cification lower pole LEFT kidney. No solid mass. Moderate atherosclerosis aorta. Stomach is not distended. No small bowel obstruction. Prior appendectomy. There is a focal narrowing involving the ascending colon but no associated masses. There are few scattered diverticula with no a cute diverticulitis. Thinning of the abdominal wall musculature. Asymmetric thinning greatest on the RIGHT. Soft tissue ca lcifications in the posterior pelvis. Pelvic CT: Prior hysterectomy. No free fluid or adenopathy. No osseous abnormality. No destructive bone lesions. IMPRESSION: 1. No metastatic pulmonary nodules or adenopathy. 2. Prior cholecystectomy and appendectomy. 3. No GI tract obstruction. No obstructing lesions identified. There is a focal area of mild luminal narrowing in the ascending colon with no associated mass. This may be an area of narrowing due to per istalsis. Colon will be better evaluated by colonoscopy. 4. Minimally distended urinary bladder. No focal mass. 5. No retroperitoneal adenopathy or ascites.
[2023-07-24 13:59] VITALS: BP 163/98; PULSE 84; RESP 17; TEMP 36.8; O2SAT 92
[2023-07-24 14:03] LABS: Basophils # 0.1 10^3/uL (0.0-0.1); Basophils % 1.1 %; Eosinophils # 0.2 10^3/uL (0.0-0.8); Eosinophils % 2.4 %; Hematocrit 45.8 % (36-47); Lymphocytes # 1.9 10^3/uL (0.8-4.8); Lymphocytes % 26.7 %; Mean Corpuscular HGB Conc 32.5 g/dL (30-55); Mean Corpuscular Hemoglobin 36.3 pg (27-33); Mean Corpuscular Volume 111.4 fl (85-98); Mean Platelet Volume 8.7 fL (7.4-10.4); Monocytes # 0.6 10^3/uL (0.2-0.9); Monocytes % 8.9 %; Neutrophils # 4.37 10^3/uL (1.8-7.7); Neutrophils % 60.6 %; Nucleated Red Blood Cells % 0 %; Platelet Count 240 10^3/cmm (157-399); Red Blood Count 4.11 10^6/uL (3.85-5.65); Red Cell Distribution Width 15.7 % (12.1-15.1)
[2023-07-24 14:29] LABS: Alanine Aminotransferase 14 U/L (0-33); Albumin Level 3.9 g/dL (3.5-5.2); Alkaline Phosphatase 54 U/L (35-105); Blood Urea Nitrogen 13 mg/dL (8-23); Calcium 9.1 mg/dL (8.5-10.5); Carbon Dioxide 29 mmol/L (22-29); Chloride 100 mmol/L (98-107); Globulin 2.6 g/dL (1.3-4.6); Glomerular Filtration Rate 124.6 mL/min (90-130); Glucose 173 mg/dL (65-115); Osmolality Calculated 290 mOsm/kg (285-295); Sodium 138 mmol/L (136-145); Total Bilirubin 0.3 mg/dL (0.15-1.2); Total Protein 6.5 g/dL (6.6-8.7)
[2023-07-24 14:43] LABS: Anion Gap 13.2 (5-19); Aspartate Amino Transferase 14 U/L (0-32); Potassium 4.2 mmol/L (3.5-5.1)
[2023-07-24 15:30] VITALS: BP 163/98; PULSE 84; RESP 17; TEMP 36.8; O2SAT 92
[2023-07-24 17:01] LABS: Folate Level 3.4 ng/mL (4.8-37.3)
[2023-07-24 17:08] LABS: Vitamin B12 350 pg/mL (232-1245)
[2023-07-29 02:55] LABS: Methylmalonic Acid 778 nmol/L (87-318)
== END 2023-08-14 23:59 | disposition home or self-care (01) ==
PROVIDERS: Nurse Practitioner Family; PCP Nurse Practitioner Family; Visit Provider Internal Medicine
DX: D75.1 Secondary polycythemia (principal); R11.2 Nausea with vomiting, unspecified; R63.4 Abnormal weight loss; R61 Generalized hyperhidrosis; J39.2 Other diseases of pharynx; Z85.51 Personal history of malignant neoplasm of bladder
CPT/HCPCS: 36415; 71260; 74177; 80053; 82607; 82746; 83921; 85025; 99214

== ENCOUNTER 2023-10-01 08:06 | Outpatient (CLI) | payer MEDICARE, MEDICAID, SELFPAY ==
--- NOTE | 2023-10-01 10:00 | CT_ITS ---
WS: [id number] CT LEFT HIP, NONCONTRAST. HISTORY: left hip pain due to fall, possible fracture Technique: All CT scans at [facility] use at least one of these dose optimization techniques: automated exposure control; mA and/or kV adjustment per patient size (includes targeted exams where dose is matched to clinical indication); or iterative reconstruction. DLP: 560.59 mGy.cm COMPARISON: 07/21/2023, 02/16/2016, radiograph 10/01/2023 No acute fracture or displacement of the LEFT hip. Moderate osteophytic ridging around the acetabulum and the femoral head/neck junction. There is mild cortical thickening along the femoral neck but no fracture. Greater and lesser trochanters are intact. No fracture through the superior or inferior pub ic rami on the LEFT. No significant joint effusion is identified. No osseous destruction. Femoral head is high riding and abuts the lateral aspect of the acetabulum. There is irregularity along the cortical surfaces of the acetabulum and femoral head. Mild sigmoid diverticulosis. IMPRESSION: 1. No acute or subacute fracture LEFT hip. 2. Moderate joint space narrowing with osteoarthritic changes involving the LEFT hip. 3. Sigmoid diverticulosis.
== END 2023-10-01 08:07 | disposition home or self-care (01) ==
PROVIDERS: PCP Nurse Practitioner Family; Visit Provider Specialist
DX: M25.552 Pain in left hip
CPT/HCPCS: 73502; 73700; 99205

== ENCOUNTER → 2023-12-11 07:50 | Outpatient (BNVA) | payer MEDICARE, MEDICAID, SELFPAY | PROVIDERS: PCP Nurse Practitioner Family; Referring Provider Nurse Practitioner Family; Visit Provider Orthopaedic Surgery | DX: M54.50 Low back pain, unspecified (principal); M48.062 Spinal stenosis, lumbar region with neurogenic claudication | CPT/HCPCS: 72110; 99204 ==

== ENCOUNTER 2024-03-08 12:06 | Oncology outpatient (recurring) (ONCR) | payer MEDICARE, MEDICAID, SELFPAY ==
[2024-03-08 12:27] LABS: Basophils # 0.1 10^3/uL (0.0-0.1); Basophils % 1.1 %; Eosinophils # 0.1 10^3/uL (0.0-0.8); Eosinophils % 1.9 %; Hematocrit 43.8 % (36-47); Lymphocytes # 1.8 10^3/uL (0.8-4.8); Lymphocytes % 31.4 %; Mean Corpuscular HGB Conc 32.6 g/dL (30-55); Mean Corpuscular Volume 113.2 fl (85-98); Mean Platelet Volume 8.5 fL (7.4-10.4); Monocytes # 0.5 10^3/uL (0.2-0.9); Monocytes % 7.9 %; Neutrophils # 3.25 10^3/uL (1.8-7.7); Neutrophils % 57.3 %; Nucleated Red Blood Cells % 0 %; Platelet Count 266 10^3/cmm (157-399); Red Blood Count 3.87 10^6/uL (3.85-5.65); Red Cell Distribution Width 12.8 % (12.1-15.1); White Blood Count 5.67 10^3/uL (3.29-11.43)
[2024-03-08 13:09] LABS: Alanine Aminotransferase 24 U/L (0-33); Albumin Level 4.1 g/dL (3.5-5.2); Alkaline Phosphatase 60 U/L (35-105); Anion Gap 16.2 (5-19); Aspartate Amino Transferase 27 U/L (0-32); Blood Urea Nitrogen 9 mg/dL (8-23); Carbon Dioxide 22 mmol/L (22-29); Chloride 104 mmol/L (98-107); Creatinine Clr Calc Pharmacy 161.0299; Globulin 2.9 g/dL (1.3-4.6); Glomerular Filtration Rate 160.7 mL/min (90-130); Glucose 127 mg/dL (65-115); Osmolality Calculated 286 mOsm/kg (285-295); Potassium 4.2 mmol/L (3.5-5.1); Sodium 138 mmol/L (136-145); Total Bilirubin 0.3 mg/dL (0.15-1.2)
[2024-03-08 13:12] LABS: Folate Level 6.2 ng/mL (4.8-37.3)
[2024-03-08 13:25] LABS: Vitamin B12 460 pg/mL (232-1245)
== END 2024-03-14 23:59 | disposition home or self-care (01) ==
PROVIDERS: PCP Nurse Practitioner Family; Visit Provider Internal Medicine
DX: E53.8 Deficiency of other specified B group vitamins; D75.89 Other specified diseases of blood and blood-forming organs; Z87.891 Personal history of nicotine dependence; Z85.51 Personal history of malignant neoplasm of bladder; I48.91 Unspecified atrial fibrillation; Z79.899 Other long term (current) drug therapy
CPT/HCPCS: 36415; 80053; 82607; 82746; 85025; 99214

== ENCOUNTER 2024-03-31 08:00 | Outpatient (CLI) | payer MEDICARE, MEDICAID, SELFPAY ==
--- NOTE | 2024-03-31 08:00 | MR_ITS ---
WS: [id number] MRI LUMBAR SPINE NONCONTRAST HISTORY: lower back pain, LEFT hip pain. COMPARISON: 07/10/2010 TECHNIQUE: Sagittal and axial multisequence imaging is submitted. Normal lumbar alignment with no compression fractures or marrow edema. L1 hemangioma. Disc spaces and vertebral body heights are well-preserved. Conus terminates normally at L1-2 disc level. L1-L2: Normal. L2-L3: Normal. L3-L4: Very slight asymmetric disc bulging to the LEFT. There is some slight disc contact and displac ement on the LEFT traversing L4 nerve root. New finding since 2009. There is additional mild LEFT for aminal stenosis. Small amount of fluid in the LEFT facet joint. Ligamentum flavum hypertrophy. L4-L5: Diffuse annular disc bulging encroaching upon the ventral thecal sac and subarticular recesses . Mild bilateral foraminal stenosis. L5-S1: Mild disc bulging and facet arthritis. Mild foraminal stenosis. Several RIGHT renal cysts are identified. MR/MR lumbar spine wo con* [id number] IMPRESSION: 1. No acute fracture or high-grade central stenosis. 2. L3-4: Asymmetric disc bulging at L3-4 with the disc bulging contacting and slightly displacing the traversing LEFT L4 nerve root. New since 2009. Addition al mild LEFT foraminal stenosis. 3. L4-5 and L5-S1: Mild bilateral foraminal stenosis.
== END 2024-03-31 08:01 | disposition home or self-care (01) ==
PROVIDERS: PCP Nurse Practitioner Family; Visit Provider Orthopaedic Surgery
DX: M51.36 Other intervertebral disc degeneration, lumbar region (principal); Q61.02 Congenital multiple renal cysts
CPT/HCPCS: 72148

== ENCOUNTER → 2024-04-06 08:00 | Outpatient (BNVA) | payer MEDICARE, MEDICAID, SELFPAY | PROVIDERS: PCP Nurse Practitioner Family; Visit Provider Orthopaedic Surgery | DX: Z09 Encounter for follow-up examination after completed treatment for conditions other than malignant neoplasm (principal); M54.9 Dorsalgia, unspecified | CPT/HCPCS: 99214 ==

== ENCOUNTER 2024-04-20 06:00 | Outpatient (RCR) | payer MEDICARE, MEDICAID, SELFPAY | END 2024-05-15 23:59 | disposition home or self-care (01) | LOC: WPT 06:00 | PROVIDERS: Visit Provider Orthopaedic Surgery | DX: M54.9 Dorsalgia, unspecified (principal); M25.559 Pain in unspecified hip; G89.29 Other chronic pain | CPT/HCPCS: 97110; 97112; 97163; 97530 ==

== ENCOUNTER 2024-05-16 06:00 | Outpatient (RCR) | payer MEDICARE, MEDICAID, SELFPAY | END 2024-06-14 23:59 | disposition home or self-care (01) | LOC: WPT 06:00 | PROVIDERS: Visit Provider Orthopaedic Surgery | DX: M54.9 Dorsalgia, unspecified (principal); M25.559 Pain in unspecified hip; G89.29 Other chronic pain | CPT/HCPCS: 97110; 97530 ==

== ENCOUNTER 2024-11-10 12:36 | Oncology outpatient (recurring) (ONCR) | payer MEDICAID, SELFPAY ==
[2024-11-10 12:57] LABS: Basophils % 0.8 %; Eosinophils # 0.1 10^3/uL (0.0-0.8); Eosinophils % 1.1 %; Hematocrit 35.8 % (36-47); Lymphocytes # 0.9 10^3/uL (0.8-4.8); Lymphocytes % 16.1 %; Mean Corpuscular Hemoglobin 39.6 pg (27-33); Mean Corpuscular Volume 120.1 fl (85-98); Mean Platelet Volume 8.6 fL (7.4-10.4); Monocytes # 0.4 10^3/uL (0.2-0.9); Monocytes % 8.3 %; Neutrophils # 3.89 10^3/uL (1.8-7.7); Neutrophils % 73.5 %; Nucleated Red Blood Cells % 0 %; Platelet Count 216 10^3/cmm (157-399); Red Blood Count 2.98 10^6/uL (3.85-5.65); Red Cell Distribution Width 16.5 % (12.1-15.1); White Blood Count 5.29 10^3/uL (3.29-11.43)
[2024-11-10 13:17] LABS: Alanine Aminotransferase 47 U/L (0-33); Albumin Level 3.8 g/dL (3.5-5.2); Alkaline Phosphatase 99 U/L (35-105); Anion Gap 14.2 (5-19); Aspartate Amino Transferase 112 U/L (0-32); Blood Urea Nitrogen 5 mg/dL (8-23); Calcium 8.7 mg/dL (8.5-10.5); Carbon Dioxide 25 mmol/L (22-29); Chloride 107 mmol/L (98-107); Globulin 2.8 g/dL (1.3-4.6); Glucose 116 mg/dL (65-115); Osmolality Calculated 294 mOsm/kg (285-295); Potassium 3.2 mmol/L (3.5-5.1); Sodium 143 mmol/L (136-145); Total Bilirubin 0.9 mg/dL (0.15-1.2); Total Protein 6.6 g/dL (6.6-8.7)
[2024-11-10 13:32] LABS: Vitamin B12 963 pg/mL (232-1245)
[2024-11-10 13:36] LABS: Folate Level 4.5 ng/mL (4.8-37.3)
[2024-11-14 04:05] LABS: Methylmalonic Acid 264 nmol/L (69-390)
== END 2024-11-12 23:59 | disposition home or self-care (01) ==
PROVIDERS: Nurse Practitioner Family; Visit Provider Internal Medicine
DX: Z53.9 Procedure and treatment not carried out, unspecified reason (principal); E53.8 Deficiency of other specified B group vitamins; D75.1 Secondary polycythemia; Z85.51 Personal history of malignant neoplasm of bladder
CPT/HCPCS: 36415; 80053; 82607; 82746; 83921; 85025

== ENCOUNTER 2024-12-28 17:43 | Inpatient (IN) | payer MEDICARE, MEDICAID, SELFPAY ==
[2024-12-28] VITALS (10 sets, daily range): BP systolic 113–145; BP diastolic 77–98; PULSE 120–137; RESP 16–34; TEMP 36.6–37.2; O2SAT 77–95; BMI 45.2
--- NOTE | 2024-12-28 17:50 | CTR_ITS ---
PROCEDURE INFORMATION: Exam: CT Abdomen And Pelvis Without Contrast Exam date and time: 12/28/2024 7:14 PM Age: 64 years old Clinical indication: Abdominal pain; Generalized; Additional info: Abd pain TECHNIQUE: Imaging protocol: Computed tomography of the abdomen and pelvis without contrast. Radiation optimization: All CT scans at this facility use at least one of these dose optimization techniques: automated exposure control; mA and/or kV adjustment per patient size (includes targeted exams where dose is matched to clinical indication); or iterative reconstruction. COMPARISON: CT chest abdpel w/*[id number] 07/21/2023 8:59 AM RADIATION DOSE METRICS: Total DLP (mGy-cm): 1219.23 FINDINGS: Liver: Normal. No mass. Gallbladder and biliary ducts: The gallbladder is surgically absent. Pancreas: Normal. No ductal dilation. Spleen: Normal. No splenomegaly. Adrenal glands: Normal. No mass. Kidneys and ureters: Nonobstructing left nephrolithiasis. Small bilateral renal cysts. Stomach and bowel: There is abnormal wall thickening and inflammation centered along the distal duodenum concerning for duodenitis. There are few mildly dilated loops of small bowel without transition point. No signs of bowel obstruction. Scattered colon diverticula. Appendix: No evidence of appendicitis. Intraperitoneal space: Unremarkable. No free air. No significant fluid collection. Vasculature: Extensive calcific plaque involves the abdominal aorta and iliac arteries. The abdominal aorta is free of aneurysm. Lymph nodes: Unremarkable. No enlarged lymph nodes. Urinary bladder: Unremarkable as visualized. Reproductive: The uterus is surgically absent. Bones/joints: Mild degenerative changes involve the spine. No acute bony abnormality. Soft tissues: There is abnormal skin thickening involving the lower anterior abdominal/pelvic wall. Mild diffuse anasarca. CT/CT abdomen pelvis wo con [id number] IMPRESSION: 1. Findings suggestive of a duodenitis. There are multiple dilated loops of small bowel without transition point suggesting an ileus/enteritis. 2. Nonobstructing left nephrolithiasis. 3. Bilateral renal cysts. 4. Abnormal skin thickening involving the lower anterior abdominal wall. Correlation with physical examination recommended to exclude cellulitis. COMMENTS: Consistent with the [employer]'s Incidental Findings Committee white paper (J Am Adam Radiol 2018): Any incidental renal lesion less than 1 cm or classified as too small to characterize, or any incidental cystic renal lesion characterized as simple-appearing, is likely benign. No follow-up imaging is recommended for these lesions per consensus recommendations based on imaging criteria.
[2024-12-28 18:21] LABS: Basophils % 0.3 %; Eosinophils % 0.1 %; Hematocrit 40.7 % (36-47); Lymphocytes # 0.9 10^3/uL (0.8-4.8); Lymphocytes % 12.6 %; Mean Corpuscular HGB Conc 31.4 g/dL (30-55); Mean Corpuscular Hemoglobin 40.6 pg (27-33); Mean Corpuscular Volume 129.2 fl (85-98); Mean Platelet Volume 8.8 fL (7.4-10.4); Monocytes # 0.4 10^3/uL (0.2-0.9); Monocytes % 6.3 %; Neutrophils # 5.62 10^3/uL (1.8-7.7); Neutrophils % 80.3 %; Nucleated Red Blood Cells % 0 %; Platelet Count 210 10^3/cmm (157-399); Red Blood Count 3.15 10^6/uL (3.85-5.65); Red Cell Distribution Width 18.6 % (12.1-15.1)
[2024-12-28] MEDS: morphine 4 mg/mL SDV 1 mL IVP (18:27)
[2024-12-28] MEDS: methylPREDNISolone sod succ 125 mg/2 mL INJ 60 MG IVP (18:27)
[2024-12-28] MEDS: famotidine 20 mg/2 mL INJ 40 MG IVP (18:27)
[2024-12-28] MEDS: diphenhydrAMINE 50 mg/mL SDV 1mL IVP (18:27)
[2024-12-28 18:28] LABS: Bacteria Urine Trace /hpf; Hyaline Casts Urine 0-4 /lpf; Squamous Epithelial Cell Urine 0-5 /hpf (0-5); WBC Urine 0-5 /hpf (0-5)
[2024-12-28 18:47] LABS: Alanine Aminotransferase 16 U/L (0-33); Albumin Level 3.8 g/dL (3.5-5.2); Alkaline Phosphatase 72 U/L (35-105); Anion Gap 18.2 (5-19); Aspartate Amino Transferase 20 U/L (0-32); Blood Urea Nitrogen 9 mg/dL (8-23); Calcium 8.4 mg/dL (8.5-10.5); Carbon Dioxide 19 mmol/L (22-29); Chloride 102 mmol/L (98-107); Creatinine Clr Calc Pharmacy 81.4636; Globulin 2.6 g/dL (1.3-4.6); Glomerular Filtration Rate 160.2 mL/min (90-130); Glucose 92 mg/dL (65-115); Osmolality Calculated 278 mOsm/kg (285-295); Potassium 4.2 mmol/L (3.5-5.1); Sodium 135 mmol/L (136-145); Total Bilirubin 0.8 mg/dL (0.15-1.2); Total Protein 6.4 g/dL (6.6-8.7)
[2024-12-28 19:10] LABS: Add Urine Microscopic? YES; Bilirubin Urine Negative (Negative); Blood Urine Negative (Negative); Glucose Urine UA Negative (Normal); Ketones Urine Negative (Negative); Leukocyte Esterase Urine Negative (Negative); Nitrate Urine Negative (Negative); Protein Urine Negative (Negative); Specific Gravity, Urine 1.028 (1.005-1.030); Urine Appearance Clear (CLEAR); Urine Color Yellow (Yellow)
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
[2024-12-28] MEDS: HYDROmorphone 0.5 MG/0.5 ML INJ 1 MG IVP (20:52)
[2024-12-28] MEDS: dilTIAZem 100 MG in sodium chloride 0.9% (add-van) 100 ML IV (20:52)
[2024-12-28] MEDS: sodium chloride 0.9% 1,000 ML 999 ML IV (20:59)
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
[2024-12-28 22:02] LABS: Lactic Sepsis W/Reflex 1.1 mmol/L (0.5-2.2)
[2024-12-28 22:18] LABS: Procalcitonin 4.71 ng/mL (0-0.5)
[2024-12-28] MEDS: apixaban 5 mg Tablet PO (23:29)
[2024-12-28] MEDS: metroNIDAZOLE IV 500 MG/100 ML PREMIX 100 MG IV (23:29)
[2024-12-28] MEDS: polyethylene glycol 3350 Pkt 17 gm PO (23:29)
[2024-12-28] MEDS: pantoprazole 40 mg SDV IVP (23:29)
[2024-12-28] MEDS: ciprofloxacin 400 MG/200 ML PREMIX 200 MG IV (23:30)
[2024-12-28] MEDS: morphine 4 mg/mL SDV 1 mL 2 MG IVP (23:40)
[2024-12-28 23:47] LABS: C Reactive Protein 11.9 mg/L (0.0-4.9); Chol HDL Ratio 1.67 mg/dL (0.0-4.40); Cholesterol 105 mg/dL (0-200); HDL Cholesterol 63 mg/dL (60-100); LDL Cholesterol Calculated 18 mg/dL (50-129); LDL HDL Ratio 0.29 RATIO (0.00-3.22); Thyroid Stimulating Hormone 3.23 uIU/mL (0.27-4.20); Triglycerides 121 mg/dL (0-150)
[2024-12-28] MEDS: sodium chloride 0.9% 1,000 ML 75 ML IV (23:49)
[2024-12-29] VITALS (12 sets, daily range): BP systolic 95–163; BP diastolic 46–87; PULSE 71–126; RESP 14–26; TEMP 36.4–37.2; O2SAT 91–97
[2024-12-29 00:02] LABS: Estmated Average Glucose 103; Hemoglobin A1C 5.2 % (4.0-6.0)
[2024-12-29] MEDS: amiodarone 150 MG/100 ML PREMIX 400 MG IV (00:43)
[2024-12-29] MEDS: acetaminophen 325 mg Tablet 650 MG PO (04:58)
[2024-12-29 05:57] LABS: Basophils % 0.2 %; Hematocrit 38.3 % (36-47); Lymphocytes # 0.5 10^3/uL (0.8-4.8); Lymphocytes % 7.3 %; Mean Corpuscular HGB Conc 30.8 g/dL (30-55); Mean Corpuscular Hemoglobin 40.8 pg (27-33); Mean Corpuscular Volume 132.5 fl (85-98); Mean Platelet Volume 8.9 fL (7.4-10.4); Monocytes # 0.2 10^3/uL (0.2-0.9); Monocytes % 3.4 %; Neutrophils # 5.73 10^3/uL (1.8-7.7); Neutrophils % 88.3 %; Nucleated Red Blood Cells % 0 %; Platelet Count 182 10^3/cmm (157-399); Red Blood Count 2.89 10^6/uL (3.85-5.65); Red Cell Distribution Width 18.6 % (12.1-15.1); White Blood Count 6.48 10^3/uL (3.29-11.43)
[2024-12-29 06:06] LABS: Glucose Point of Care 158 mg/dL (70-110)
[2024-12-29 06:18] LABS: Alanine Aminotransferase 13 U/L (0-33); Albumin Level 3.6 g/dL (3.5-5.2); Alkaline Phosphatase 68 U/L (35-105); Aspartate Amino Transferase 18 U/L (0-32); Blood Urea Nitrogen 7 mg/dL (8-23); Calcium 7.8 mg/dL (8.5-10.5); Carbon Dioxide 20 mmol/L (22-29); Chloride 106 mmol/L (98-107); Creatinine Clr Calc Pharmacy 83.5723; Globulin 2.4 g/dL (1.3-4.6); Glomerular Filtration Rate 223.3 mL/min (90-130); Glucose 124 mg/dL (65-115); Magnesium 1.9 mg/dL (1.7-2.3); Osmolality Calculated 285 mOsm/kg (285-295); Phosphorus 3.4 mg/dL (2.5-4.5); Sodium 138 mmol/L (136-145); Total Bilirubin 0.5 mg/dL (0.15-1.2)
[2024-12-29] MEDS: metroNIDAZOLE IV 500 MG/100 ML PREMIX 100 MG IV ×3 (06:19→22:53)
[2024-12-29 06:21] LABS: Anion Gap 16.4 (5-19); Potassium 4.4 mmol/L (3.5-5.1)
[2024-12-29] MEDS: pantoprazole 40 mg SDV IVP ×2 (08:23→22:12)
[2024-12-29] MEDS: folic acid 1 mg Tablet PO (08:24)
[2024-12-29] MEDS: metoprolol tartrate 50 mg Tablet PO ×2 (08:24→17:36)
[2024-12-29] MEDS: levothyroxine 112 mcg Tablet PO (08:24)
[2024-12-29] MEDS: apixaban 5 mg Tablet PO ×2 (08:24→17:36)
[2024-12-29] MEDS: insulin lispro 100 unit/1 mL SUBCUT ×2 (08:24→20:55)
[2024-12-29] MEDS: fenofibrate 145 mg Tablet PO (08:24)
[2024-12-29] MEDS: clopidogrel 75 mg Tablet PO (08:24)
[2024-12-29] MEDS: morphine 4 mg/mL SDV 1 mL 2 MG IVP ×3 (08:44→19:09)
[2024-12-29] MEDS: ondansetron 2 mg/ML SDV 2 mL 4 MG IVP (08:44)
--- NOTE | 2024-12-29 09:02 | PC.CHAP ---
Pastoral Care Encounter/Spiritual Assessment Type of Contact [] Declined global position system technician visit [] Patient/Family/Request visit [] Outpatient visit [] Follow-up visit [] Physician referral [] Code/Alert [x] Routine visit [] Staff referral [] Actively dying [] Patient sleeping [] Family support [] [] Out of room [] Palliative care [] [] Receiving care in room [] Pre-surgical visit [] Trauma [] Long length of stay [] ICU visit [] Other: Relational/Emotional Strength [x] Patient feels connected with others/family/visitors/staff [] Distress [] Loneliness/isolation [] Abandonment Spirituality of Patient [x] Person of Génesis [] Attends Zoroastrian of their Génesis [x] Believes in Prayer [] Reads Bible or Jewish materials [] There are Spiritual issues to be addressed Credit Cashier Interventions [x] Prayer [x] Active listening [x] Non-anxious presence [x] Spiritual/emotional support [] Crisis/trauma care [] Spiritual counseling [] Bereavement support [] Provided bereavement packet [] Provided Bible/devotional materials [] Provided toy/stuffed animal, coloring book to patient or family member [] Provided Communion [] Anointing/[place] [] Salvation [x] Completed spiritual assessment [] Other: Impact on Illness or Injury [] Angry [] Fearful [] Anxious [] Often cries [] Exhaustion [] Unable to work [] Unable to attend sikhism [] Unable to walk/stand [] Unable to read [] Unable to drive [] Unable to eat/drink [] Unable to sleep [] Unable to be with family [] Patient intubated [] Other: Summary Time spent with patient 10 min
--- NOTE | 2024-12-29 09:34 | PC.PHAR ---
Pt unable to comprehend her medications and has a guardian. [facility] faxed pts current med list.
[2024-12-29 11:39] LABS: Glucose Point of Care 93 mg/dL (70-110)
[2024-12-29] MEDS: ciprofloxacin 400 MG/200 ML PREMIX 200 MG IV ×2 (11:52→22:12)
[2024-12-29 16:39] LABS: Glucose Point of Care 103 mg/dL (70-110)
--- NOTE | 2024-12-29 17:10 | PM.PN ---
Subjective Subjective: Overnight labs and H&P reviewed. Noted to have some edema, therefore IV fluids were discontinued. Vitals/I&O/Wt Last Vital Signs Temp 98.4 F 12/29/24 15:16 Pulse 94 12/29/24 15:16 Resp 23 H 12/29/24 15:16 BP 116/76 12/29/24 15:16 Pulse Ox 93 12/29/24 15:16 O2 Del Method Nasal Cannula 12/29/24 15:16 O2 Flow Rate 2 12/28/24 22:51 12/29/24 12/29/24 12/29/24 06:59 14:59 22:59 Intake Total 1622.417 / 3407.966 1713 / 2186 100 / 2286 Balance 1622.417 / 5219.444 1414 / 2186 100 / 2286 Weight last 48 hrs Weight 113.625 kg Weight 112.179 kg Weight 112.264 kg Weight 108.862 kg Physical Exam Narrative: General: No acute distress, AO x3 HEENT: PERRLA, pupils bilaterally equal and reactive, pallors not present Chest: Normal vesicular breath sounds, no added sounds, equal good air entry bilaterally CVS: S1-S2 regular, no murmurs, no tachycardia, no gallops, no rubs Abdomen: Soft, nontender, no organomegaly, bowel sounds present Neuro: No focal deficits, no facial deformity, AO x3, power 5/5 in all limbs Data 12/29/24 04:47 12/29/24 04:47 A&P Assessment and plan (1) Atrial fibrillation with RVR: (2) Morbid obesity with BMI of 40.0-44.9, adult: (3) Folic acid deficiency: (4) Duodenitis: (5) Nausea & vomiting: (6) Dehydration: Plan Dehydration - IV fluids Abdominal pain, diarrhea, nausea vomiting - Zofran, Reglan for nausea and vomiting - Morphine as needed for abdominal pain - Has evidence of duodenitis on CT scan, start Cipro and Flagyl - Order CRP, Pro-Micheal, lactic acid, stool studies A-fib with RVR - Start Cardizem drip - Continue home Eliquis Type 2 diabetes mellitus, low-dose sliding scale Morbid obesity Eliquis for DVT prophylaxis Patient is DNR/DNI, confirmed with patient multiple times December 29, 2024 Overnight labs and H&P reviewed. Patient noted to be developing generalized edema and therefore IV fluids were discontinued. Currently afebrile and hemodynamically stable. Procalcitonin elevated. Currently on amiodarone drip, heart rate is well-controlled. Will obtain dig level with a.m. labs.Hemoglobin remained stable. Reviewed last colonoscopy results from [facility] from [place] scanned into our system. Patient underwent colonoscopy on August 2023 at which time she was found to have internal hemorrhoids and a 5 mm transverse polyp. I do not have the biopsy results available at this admission. CT of the abdomen pelvis overnight suggested a duodenitis, multiple dilated loops suggesting an ileus. Conservative management for now. Continue clear liquid diet. Continue ciprofloxacin and metronidazole empirically. PDMP PDMP Reviewed: Not Reviewed Attestations Medical Necessity Statement*: continue iv abx, amiodarone gtt with aim to overlap , check dig level Coding Level of Care Code Acute Code for Chg Fwd Diagnoses Atrial fibrillation with RVR I48.91 Morbid obesity with BMI of 40.0-44.9, adult E66.01; Z68.41 Folic acid deficiency E53.8 Duodenitis K29.80 Nausea & vomiting R11.2 Dehydration E86.0
[2024-12-29] MEDS: nystatin powder 15 gm Btl 1 APPLIC TOPICAL (17:37)
[2024-12-30] VITALS (12 sets, daily range): BP systolic 104–131; BP diastolic 62–89; PULSE 72–105; RESP 16–28; TEMP 36.2–37; O2SAT 92–100
[2024-12-30] MEDS: polyethylene glycol 3350 Pkt 17 gm PO ×2 (01:06→16:27)
[2024-12-30] MEDS: morphine 4 mg/mL SDV 1 mL 2 MG IVP ×2 (01:38→08:04)
[2024-12-30 05:55] LABS: Basophils % 0.2 %; Eosinophils % 0.4 %; Hematocrit 39.8 % (36-47); Lymphocytes # 0.7 10^3/uL (0.8-4.8); Lymphocytes % 14.1 %; Mean Corpuscular HGB Conc 29.4 g/dL (30-55); Mean Corpuscular Hemoglobin 40.5 pg (27-33); Mean Corpuscular Volume 137.7 fl (85-98); Mean Platelet Volume 8.3 fL (7.4-10.4); Monocytes # 0.4 10^3/uL (0.2-0.9); Monocytes % 8.5 %; Neutrophils # 3.93 10^3/uL (1.8-7.7); Neutrophils % 76.2 %; Nucleated Red Blood Cells % 0 %; Platelet Count 150 10^3/cmm (157-399); Red Blood Count 2.89 10^6/uL (3.85-5.65); Red Cell Distribution Width 19.1 % (12.1-15.1); White Blood Count 5.16 10^3/uL (3.29-11.43)
[2024-12-30] MEDS: metroNIDAZOLE IV 500 MG/100 ML PREMIX 100 MG IV (06:07)
[2024-12-30 06:13] LABS: Glucose Point of Care 134 mg/dL (70-110)
[2024-12-30 06:25] LABS: Digoxin 0.3 ng/mL (0.6-1.2)
[2024-12-30 06:26] LABS: Alanine Aminotransferase 13 U/L (0-33); Albumin Level 3.6 g/dL (3.5-5.2); Alkaline Phosphatase 65 U/L (35-105); Blood Urea Nitrogen 7 mg/dL (8-23); Calcium 8.2 mg/dL (8.5-10.5); Carbon Dioxide 21 mmol/L (22-29); Chloride 107 mmol/L (98-107); Creatinine Clr Calc Pharmacy 84.2146; Globulin 2.5 g/dL (1.3-4.6); Glomerular Filtration Rate 160.2 mL/min (90-130); Glucose 128 mg/dL (65-115); Osmolality Calculated 288 mOsm/kg (285-295); Sodium 139 mmol/L (136-145); Total Bilirubin 0.6 mg/dL (0.15-1.2); Total Protein 6.1 g/dL (6.6-8.7)
[2024-12-30 06:29] LABS: Anion Gap 15.5 (5-19); Aspartate Amino Transferase 19 U/L (0-32); Potassium 4.5 mmol/L (3.5-5.1)
--- NOTE | 2024-12-30 07:57 | PC.NURSE ---
educated pt to apply her oxygen back on her nose. Pt noted to desat on low 81s to 84% on spo2 without her oxygen. check on pt in room and it was off her nose and noticed she takes it off then fall asleep and forgot to put it back. Educated pt to put it back due to low oxygen, nurse put it back on. will keep monitoring.
[2024-12-30] MEDS: fenofibrate 145 mg Tablet PO (08:04)
[2024-12-30] MEDS: folic acid 1 mg Tablet PO (08:04)
[2024-12-30] MEDS: metoprolol tartrate 50 mg Tablet PO ×2 (08:04→16:28)
[2024-12-30] MEDS: clopidogrel 75 mg Tablet PO (08:04)
[2024-12-30] MEDS: levothyroxine 112 mcg Tablet PO (08:04)
[2024-12-30] MEDS: apixaban 5 mg Tablet PO ×2 (08:04→16:28)
[2024-12-30] MEDS: ondansetron 2 mg/ML SDV 2 mL 4 MG IVP ×2 (08:14→11:43)
[2024-12-30 11:40] LABS: Glucose Point of Care 143 mg/dL (70-110)
[2024-12-30] MEDS: insulin lispro 100 unit/1 mL SUBCUT ×2 (11:42→21:01)
[2024-12-30] MEDS: HYDROmorphone 0.5 MG/0.5 ML INJ IVP ×3 (11:42→20:15)
[2024-12-30] MEDS: ciprofloxacin 400 MG/200 ML PREMIX 200 MG IV (11:43)
[2024-12-30] MEDS: pantoprazole 40 mg SDV IVP (11:43)
--- NOTE | 2024-12-30 11:57 | XR_ITS ---
WS: [id number] Portable AP upright chest, 12/30/2024 Clinical Data: pulm edema Comparison: Portable chest, 01/21/2020 Findings: No nodules, masses or effusions are seen. The heart is enlarged. The pulmonary vascularity is not increased. No pneumonia or pneumothorax is seen. The aortic arch shows calcification. There are monitor leads on the chest wall. XR/XR chest 1V portable [id number] Impression: Atherosclerosis and cardiomegaly.
--- NOTE | 2024-12-30 11:59 | XR_ITS ---
WS: [id number] KUB, AP portable supine, 12/30/2024 Clinical Data: ileus Comparison: None. Findings: No abnormal intraabdominal masses or calcifications are seen. There is no dilatated small bowel or evidence of obstruction. There is fecal material in the descending colon and rectosigmoid. Monitor leads are on the upper abdominal wall. XR/XR abdomen 1V* [id number] Impression: Fecal material in the descending colon and rectosigmoid colon.
--- NOTE | 2024-12-30 12:09 | P.PN_ITS ---
Subjective 2 Subjective: Patient's rate is currently well-controlled. Discontinue IV amiodarone infusion and transition to oral amiodarone. States that nausea is better today. She has not yet had a bowel movement. Vitals/I&O/Wt Last Vital Signs Temp 97.2 F L 12/30/24 08:00 Pulse 72 12/30/24 11:23 Resp 20 H 12/30/24 11:23 BP 131/89 12/30/24 08:00 Pulse Ox 98 12/30/24 11:23 O2 Del Method Nasal Cannula 12/30/24 11:23 O2 Flow Rate 4 12/30/24 11:23 12/29/24 12/30/24 12/30/24 22:59 06:59 14:59 Intake Total 880 / 3066 400 / 3466 780 / 780 Output Total 400 / 400 Balance 880 / 3066 0 / 3066 780 / 780 Weight last 48 hrs Weight 115.076 kg Weight 113.625 kg Weight 112.179 kg Weight 112.264 kg Weight 108.862 kg Physical Exam 2 Narrative: General: No acute distress, AO x3 HEENT: PERRLA, pupils bilaterally equal and reactive, pallors not present Chest: Normal vesicular breath sounds, no added sounds, equal good air entry bilaterally CVS: S1-S2 regular, no murmurs, no tachycardia, no gallops, no rubs Abdomen: Soft, nontender, no organomegaly, bowel sounds present Neuro: No focal deficits, no facial deformity, AO x3, power 5/5 in all limbs Extremities: Appears to be developing generalized edema/anasarca. Data 12/30/24 04:53 12/30/24 04:53 A&P Assessment and plan (1) Atrial fibrillation with RVR: (2) Morbid obesity with BMI of 40.0-44.9, adult: (3) Folic acid deficiency: (4) Duodenitis: (5) Nausea & vomiting: (6) Dehydration: Plan Dehydration - IV fluids Abdominal pain, diarrhea, nausea vomiting - Zofran, Reglan for nausea and vomiting - Morphine as needed for abdominal pain - Has evidence of duodenitis on CT scan, start Cipro and Flagyl - Order CRP, Pro-Micheal, lactic acid, stool studies A-fib with RVR - Start Cardizem drip - Continue home Eliquis Type 2 diabetes mellitus, low-dose sliding scale Morbid obesity Eliquis for DVT prophylaxis Patient is DNR/DNI, confirmed with patient multiple times December 29, 2024 Overnight labs and H&P reviewed. Patient noted to be developing generalized edema and therefore IV fluids were discontinued. Currently afebrile and hemodynamically stable. Procalcitonin elevated. Currently on amiodarone drip, heart rate is well-controlled. Will obtain dig level with a.m. labs.Hemoglobin remained stable. Reviewed last colonoscopy results from [facility] from [place] scanned into our system. Patient underwent colonoscopy on August 2023 at which time she was found to have internal hemorrhoids and a 5 mm transverse polyp. I do not have the biopsy results available at this admission. CT of the abdomen pelvis overnight suggested a duodenitis, multiple dilated loops suggesting an ileus. Conservative management for now. Continue clear liquid diet. Continue ciprofloxacin and metronidazole empirically. December 20, 2024 States that her nausea is better today. She is yet to have a bowel movement. Repeat x-ray of the abdomen today to assess for serial change in her ileus. Additionally obtain chest x-ray. On exam today patient has developed crackles, appears worse on the right side. Review of charts shows that she has been on Bumex 2 mg p.o. twice daily. Resume diuresis with Bumex 1 mg IV every 12 hours. IV fluids were discontinued yesterday. Check proBNP. TSH is within range. Patient is getting 4 L/min supplemental O2, she intermittently pulls off her oxygen at which time her O2 sats is noted to be dropping to 84 to 88%.Unlikely PE as she is chronically on Eliquis PDMP PDMP Reviewed: Not Reviewed Attestations 2 Medical Necessity Statement*: start bumex, montior kidney function and urine output Coding Level of Care Code Acute Code for Chg Fwd Diagnoses Atrial fibrillation with RVR I48.91 Morbid obesity with BMI of 40.0-44.9, adult E66.01; Z68.41 Folic acid deficiency E53.8 Duodenitis K29.80 Nausea & vomiting R11.2 Dehydration E86.0
[2024-12-30 12:31] LABS: NT Pro B Type Natriuretic Pept 977 pg/mL (0-125)
[2024-12-30 12:55] LABS: ABG PH Result 7.27 (7.35-7.45); Arterial Blood Gas Hematocrit 35.4 % (37-47); Base Excess ABG 0.2 mmol/L (-2.0-2.0); Blood Gas Allen Test Pos; Blood Gas Operator Identificat WALCI; Blood Gas Sample Site Radial, left; Blood Gas Sample Type Arterial; HCO3 ABG 28.2 mmol/L (22-26); Oxygen Device NC; PO2 ABG 72.8 mmHg (80.0-100.0)
[2024-12-30 12:56] LABS: ABG PCO2 61.4 mmHg (35-45)
[2024-12-30] MEDS: piperacillin-tazobactam 3.375 GM in sodium chloride 0.9% (plus) 50 ML IV ×2 (13:44→20:14)
[2024-12-30] MEDS: bumetanide 0.25 mg/mL SDV 4 mL 1 MG IVP ×2 (13:44→23:52)
[2024-12-30] MEDS: acetaminophen 325 mg Tablet 650 MG PO (15:14)
[2024-12-30] MEDS: pantoprazole DR 40 mg Tablet PO (16:28)
[2024-12-30] MEDS: amiodarone 200 mg Tablet 400 MG PO (16:28)
[2024-12-30] MEDS: nystatin powder 15 gm Btl 1 APPLIC TOPICAL (16:52)
[2024-12-30 17:16] LABS: Glucose Point of Care 132 mg/dL (70-110)
[2024-12-30] MEDS: lactulose oral liq 20 gm/30 mL UDC 10 GM PO (20:14)
[2024-12-30 20:25] LABS: Glucose Point of Care 181 mg/dL (70-110)
[2024-12-31] VITALS (9 sets, daily range): BP systolic 96–128; BP diastolic 58–89; PULSE 66–117; RESP 18–24; TEMP 36.4–36.7; O2SAT 91–99
[2024-12-31] MEDS: HYDROmorphone 0.5 MG/0.5 ML INJ IVP ×5 (02:07→20:25)
[2024-12-31] MEDS: piperacillin-tazobactam 3.375 GM in sodium chloride 0.9% (plus) 50 ML IV ×3 (05:09→20:25)
[2024-12-31 05:50] LABS: Basophils % 0.3 %; Eosinophils % 0.3 %; Hematocrit 38.1 % (36-47); Lymphocytes # 0.5 10^3/uL (0.8-4.8); Mean Corpuscular Hemoglobin 41.1 pg (27-33); Mean Corpuscular Volume 132.8 fl (85-98); Mean Platelet Volume 8.8 fL (7.4-10.4); Monocytes # 0.3 10^3/uL (0.2-0.9); Monocytes % 9.4 %; Neutrophils # 2.77 10^3/uL (1.8-7.7); Neutrophils % 76.4 %; Nucleated Red Blood Cells % 0 %; Platelet Count 122 10^3/cmm (157-399); Red Blood Count 2.87 10^6/uL (3.85-5.65); Red Cell Distribution Width 18.5 % (12.1-15.1); White Blood Count 3.62 10^3/uL (3.29-11.43)
[2024-12-31] MEDS: acetaminophen 325 mg Tablet 650 MG PO (05:59)
[2024-12-31 06:12] LABS: Glucose Point of Care 123 mg/dL (70-110)
[2024-12-31 06:18] LABS: Blood Urea Nitrogen 7 mg/dL (8-23); Carbon Dioxide 26 mmol/L (22-29); Chloride 107 mmol/L (98-107); Glomerular Filtration Rate 160.2 mL/min (90-130); Sodium 145 mmol/L (136-145)
[2024-12-31 06:19] LABS: Alanine Aminotransferase 15 U/L (0-33); Albumin Level 3.6 g/dL (3.5-5.2); Alkaline Phosphatase 67 U/L (35-105); Aspartate Amino Transferase 25 U/L (0-32); Calcium 8.2 mg/dL (8.5-10.5); Creatinine Clr Calc Pharmacy 83.3336; Globulin 2.5 g/dL (1.3-4.6); Glucose 104 mg/dL (65-115); Osmolality Calculated 298 mOsm/kg (285-295); Total Bilirubin 0.8 mg/dL (0.15-1.2); Total Protein 6.1 g/dL (6.6-8.7)
[2024-12-31] MEDS: polyethylene glycol 3350 Pkt 17 gm PO (07:57)
[2024-12-31] MEDS: lactulose oral liq 20 gm/30 mL UDC 10 GM PO ×2 (08:00→17:35)
[2024-12-31] MEDS: amiodarone 200 mg Tablet 400 MG PO ×2 (08:00→17:36)
[2024-12-31] MEDS: metoprolol tartrate 50 mg Tablet PO ×2 (08:00→17:36)
[2024-12-31] MEDS: folic acid 1 mg Tablet PO (08:02)
[2024-12-31] MEDS: levothyroxine 112 mcg Tablet PO (08:02)
[2024-12-31] MEDS: pantoprazole DR 40 mg Tablet PO ×2 (08:02→17:36)
[2024-12-31] MEDS: apixaban 5 mg Tablet PO ×2 (08:02→17:40)
[2024-12-31] MEDS: clopidogrel 75 mg Tablet PO (08:02)
[2024-12-31] MEDS: fenofibrate 145 mg Tablet PO (08:02)
[2024-12-31] MEDS: ondansetron 2 mg/ML SDV 2 mL 4 MG IVP ×2 (08:16→12:08)
--- NOTE | 2024-12-31 08:53 | ECG_ITS ---
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 Measurements Intervals [place] Rate: 91 P: 0 AK: 0 QRS: 59 QRSD: 91 T: 28 QT: 373 QTc: 459 Interpretive Statements ATRIAL FIBRILLATION ABNORMAL RHYTHM ECG Compared to ECG 01/18/2020 07:32:56 Sinus bradycardia no longer present Sinus arrhythmia no longer present Electronically Signed On 12-31-2024 08:55:32 CDT by Terrance Hancock M.D. [email or web address]
[2024-12-31 11:22] LABS: Glucose Point of Care 127 mg/dL (70-110)
[2024-12-31] MEDS: bumetanide 0.25 mg/mL SDV 4 mL 1 MG IVP ×2 (12:07→23:56)
[2024-12-31] MEDS: nystatin powder 15 gm Btl 1 APPLIC TOPICAL ×2 (12:09→17:42)
--- NOTE | 2024-12-31 14:03 | P.PN_ITS ---
Subjective 2 Subjective: Oxygen requirement is improving today. She is down to 2 L. Breathing more comfortably today. She refuses to wear a BiPAP. Had a bowel movement today Medications: Reviewed: Yes Vitals/I&O/Wt Last Vital Signs Temp 98.0 F 12/31/24 11:47 Pulse 88 12/31/24 11:47 Resp 19 H 12/31/24 11:47 BP 124/89 12/31/24 11:47 Pulse Ox 97 12/31/24 11:47 O2 Del Method Nasal Cannula 12/31/24 11:47 O2 Flow Rate 2 12/30/24 16:00 FiO2 35 12/30/24 13:23 12/30/24 12/31/24 12/31/24 22:59 06:59 14:59 Intake Total / 2008 250 / 2258 410 / 410 Output Total 1350 / 2650 1000 / 3650 301 / 301 Balance -690 / -642 -750 / -1392 109 / 109 Weight last 48 hrs Weight 113.086 kg Weight 112.945 kg Weight 115.076 kg Physical Exam 2 Narrative: General: No acute distress, AO x3 HEENT: PERRLA, pupils bilaterally equal and reactive, pallors not present Chest: Normal vesicular breath sounds, no added sounds, equal good air entry bilaterally CVS: S1-S2 regular, no murmurs, no tachycardia, no gallops, no rubs Abdomen: Soft, nontender, no organomegaly, bowel sounds present Neuro: No focal deficits, no facial deformity, AO x3, power 5/5 in all limbs Extremities: Appears to be developing generalized edema/anasarca. Data 12/31/24 05:01 12/31/24 05:01 A&P Assessment and plan (1) Atrial fibrillation with RVR: (2) Morbid obesity with BMI of 40.0-44.9, adult: (3) Folic acid deficiency: (4) Duodenitis: (5) Nausea & vomiting: (6) Dehydration: Plan Dehydration - IV fluids Abdominal pain, diarrhea, nausea vomiting - Zofran, Reglan for nausea and vomiting - Morphine as needed for abdominal pain - Has evidence of duodenitis on CT scan, start Cipro and Flagyl - Order CRP, Pro-Micheal, lactic acid, stool studies A-fib with RVR - Start Cardizem drip - Continue home Eliquis Type 2 diabetes mellitus, low-dose sliding scale Morbid obesity Eliquis for DVT prophylaxis Patient is DNR/DNI, confirmed with patient multiple times December 29, 2024 Overnight labs and H&P reviewed. Patient noted to be developing generalized edema and therefore IV fluids were discontinued. Currently afebrile and hemodynamically stable. Procalcitonin elevated. Currently on amiodarone drip, heart rate is well-controlled. Will obtain dig level with a.m. labs.Hemoglobin remained stable. Reviewed last colonoscopy results from [facility] from [place] scanned into our system. Patient underwent colonoscopy on August 2023 at which time she was found to have internal hemorrhoids and a 5 mm transverse polyp. I do not have the biopsy results available at this admission. CT of the abdomen pelvis overnight suggested a duodenitis, multiple dilated loops suggesting an ileus. Conservative management for now. Continue clear liquid diet. Continue ciprofloxacin and metronidazole empirically. December 30, 2024 States that her nausea is better today. She is yet to have a bowel movement. Repeat x-ray of the abdomen today to assess for serial change in her ileus. Additionally obtain chest x-ray. On exam today patient has developed crackles, appears worse on the right side. Review of charts shows that she has been on Bumex 2 mg p.o. twice daily. Resume diuresis with Bumex 1 mg IV every 12 hours. IV fluids were discontinued yesterday. Check proBNP. TSH is within range. Patient is getting 4 L/min supplemental O2, she intermittently pulls off her oxygen at which time her O2 sats is noted to be dropping to 84 to 88%.Unlikely PE as she is chronically on Eliquis December 31, 2024 Respiratory status better today. Oxygen requirement down to 2 L/min. X-ray of the abdomen shows resolution of ileus. Will advance diet. Placed on standing lactulose 10 mg 3 times daily to relieve constipation. Had few pellets of stool today. States abdominal pain is still persisting however understands that opiates may worsen constipation and hypercapnia therefore currently understanding that we cannot increase her opiate doses. Continue Bumex 1 mg IV every 12 hours with aim to transition to oral Bumex over the next 24 hours. PDMP PDMP Reviewed: Not Reviewed Attestations 2 Medical Necessity Statement*: Continue IV diuresis today. Patient looks clinically better. Aim to discharge over the next 24 hours if continues to improve. Coding Level of Care Code Acute Code for Chg Fwd Diagnoses Atrial fibrillation with RVR I48.91 Morbid obesity with BMI of 40.0-44.9, adult E66.01; Z68.41 Folic acid deficiency E53.8 Duodenitis K29.80 Nausea & vomiting R11.2 Dehydration E86.0
--- NOTE | 2024-12-31 16:38 | PC.NURSE ---
Addendum entered by Rajni Snider RN 12/31/24 16:55: Dr Verdugo also came to patient's bedside to educate patient on heavy dilaudid use. Original Note: Nurse expressed concern to patient about her need for dilaudid every 4 hours on the dot. Patient became tearful and stated that nursing staff did not understand her pain and that she wasn't trying to abuse dilaudid, she was just i n so much pain. Nurse reached out to Dr Verdugo and advised her that patient needed dilaudid every 4 hours and nurse was worried about patient's constipation. Dr Verdugo agreed and also expressed concern about her oxygen needs and her noncompliance about wearing the bipap.
[2024-12-31 17:07] LABS: Glucose Point of Care 189 mg/dL (70-110)
[2024-12-31] MEDS: insulin lispro 100 unit/1 mL SUBCUT (17:40)
[2024-12-31] MEDS: metoprolol tartrate 50 mg Tablet 75 MG PO (18:42)
[2024-12-31 20:08] LABS: Glucose Point of Care 102 mg/dL (70-110)
[2025-01-01] VITALS (7 sets, daily range): BP systolic 105–113; BP diastolic 59–79; PULSE 72–92; RESP 18–24; TEMP 36.4–36.9; O2SAT 94–99
[2025-01-01] MEDS: HYDROmorphone 0.5 MG/0.5 ML INJ IVP ×3 (01:43→10:06)
[2025-01-01] MEDS: ondansetron 2 mg/ML SDV 2 mL 4 MG IVP ×2 (01:49→05:50)
[2025-01-01 03:09] LABS: Basophils % 0.3 %; Eosinophils % 0.6 %; Hematocrit 37.7 % (36-47); Lymphocytes # 0.7 10^3/uL (0.8-4.8); Lymphocytes % 19.6 %; Mean Corpuscular Hemoglobin 40.6 pg (27-33); Mean Corpuscular Volume 130.9 fl (85-98); Mean Platelet Volume 9.2 fL (7.4-10.4); Monocytes # 0.5 10^3/uL (0.2-0.9); Monocytes % 14.3 %; Neutrophils # 2.21 10^3/uL (1.8-7.7); Neutrophils % 64.6 %; Nucleated Red Blood Cells % 0 %; Platelet Count 123 10^3/cmm (157-399); Red Blood Count 2.88 10^6/uL (3.85-5.65); Red Cell Distribution Width 18.6 % (12.1-15.1); White Blood Count 3.42 10^3/uL (3.29-11.43)
[2025-01-01 03:36] LABS: Alanine Aminotransferase 17 U/L (0-33); Albumin Level 3.7 g/dL (3.5-5.2); Alkaline Phosphatase 65 U/L (35-105); Anion Gap 12.2 (5-19); Aspartate Amino Transferase 24 U/L (0-32); Blood Urea Nitrogen 5 mg/dL (8-23); Calcium 8.2 mg/dL (8.5-10.5); Carbon Dioxide 34 mmol/L (22-29); Chloride 103 mmol/L (98-107); Creatinine Clr Calc Pharmacy 83.3336; Globulin 2.5 g/dL (1.3-4.6); Glomerular Filtration Rate 123.8 mL/min (90-130); Glucose 87 mg/dL (65-115); Osmolality Calculated 299 mOsm/kg (285-295); Potassium 3.2 mmol/L (3.5-5.1); Sodium 146 mmol/L (136-145); Total Bilirubin 0.9 mg/dL (0.15-1.2); Total Protein 6.2 g/dL (6.6-8.7)
[2025-01-01] MEDS: piperacillin-tazobactam 3.375 GM in sodium chloride 0.9% (plus) 50 ML IV (04:25)
--- NOTE | 2025-01-01 05:06 | PC.NURSE ---
patient has been having watery bms with bright red blood, notified Dr Dominguez and received order to hold eliquis, stool sample collected
[2025-01-01 06:00] LABS: C.Diff PCR (Lab) NEGATIVE (Negative)
[2025-01-01] MEDS: amiodarone 200 mg Tablet 400 MG PO (08:39)
[2025-01-01] MEDS: lactulose oral liq 20 gm/30 mL UDC 10 GM PO (08:40)
[2025-01-01] MEDS: pantoprazole DR 40 mg Tablet PO (08:40)
[2025-01-01] MEDS: metoprolol tartrate 50 mg Tablet 75 MG PO (08:41)
[2025-01-01] MEDS: folic acid 1 mg Tablet PO (08:41)
[2025-01-01] MEDS: clopidogrel 75 mg Tablet PO (08:41)
[2025-01-01] MEDS: fenofibrate 145 mg Tablet PO (08:41)
[2025-01-01] MEDS: levothyroxine 112 mcg Tablet PO (08:41)
[2025-01-01] MEDS: digoxin 125 mcg Tablet PO (08:41)
[2025-01-01 11:28] LABS: Glucose Point of Care 152 mg/dL (70-110)
[2025-01-01 15:03] LABS: Hematocrit 38.3 % (36-47)
--- NOTE | 2025-01-01 15:23 | PM.DCS ---
Discharge Providers Date of Admission: 12/28/24 20:34 Date of Discharge: January 01, 2025 Attending Provider at Admission: Delfin Dominguez MD Attending Provider at Discharge: Ranjana Verdugo MD Primary Care Provider: Bethany Gonzalez NP Diagnoses at Discharge Discharge Diagnosis (1) Atrial fibrillation with RVR: Status: Acute Permanent problem details: Resume home medications. (2) Morbid obesity with BMI of 40.0-44.9, adult: Status: Acute (3) Folic acid deficiency: Status: Acute (4) Duodenitis: Status: Acute (5) Nausea & vomiting: Status: Acute (6) Dehydration: Status: Acute Reason for Visit Reason for Visit: Rectal Bleeding Hospital Course Hospital Course Luis Varghese is a 64 year old female with a past medical history of atrial fibrillation on anticoagulation, h/o early dementia, hypertension, hyperlipidemia, type 2 diabetes, hypothyroidism, GERD, COPD, and obstructive sleep apnea non complaint with CPAP. She is on baseline home 02 at 3lpm at nighttime and intermittent during the day. Patient presented to the hospital on December 28, 2024 with chief complaints of nausea abdominal pain and diarrhea. She was noted to be in A-fib with RVR additionally. 1 episode of diarrhea had blood in it upon admission. Thereafter she developed severe constipation during the hospital course. CT of the abdomen and pelvis performed upon admission showed findings suggestive of duodenitis. Multiple dilated loops of small bowel without transition point suggesting ileus. Patient was managed conservatively for the ileus. She received IV hydration initially, however thereafter this was complicated by hypervolemia for which patient was placed on IV Bumex. She diuresed well. Respiratory status improved with diuresis. For the A-fib with RVR she was treated with amiodarone infusion. She has been transitioned to oral amiodarone at the time of discharge. Her usual dose of metoprolol has been increased from 50 mg twice daily to 75 mg twice daily. Additionally digoxin 125 mcg was continued after checking digoxin levels. Cardizem was held as heart rate was well-controlled with the above 3 medications and due to soft blood pressures there was no room or necessity to add on Cardizem. She has been maintained on her usual diuresis of oral Bumex 1 mg twice daily. For the duodenitis she received IV antibiotic treatment initially with ciprofloxacin and metronidazole. Metronidazole appeared to worsen her nausea therefore this was transitioned to IV piperacillin/tazobactam. Overall she received 5 days of IV antibiotic treatment which has been discontinued at discharge as patient is clinically improved. She is afebrile. Does not have any leukocytosis. Repeat x-ray of the abdomen performed on December 30, 2024 showed resolution of ileus. Patient reports occasional intermittent rectal bleeding mixed with stools for a long time. Review of chart showed patient had previously had a colonoscopy in 2022 which had shown internal hemorrhoids. This was likely to be the source of bleeding. Patient was noted to be passing very hard stools on December 30 therefore lactulose was added to her regimen following which patient had good bowel movements on the and . Overnight on December 31 patient's bowel movements had mild blood in them however this was resolved by the morning of January 01, 2025. Serial hemoglobin checks remained with stable hemoglobin. Today at discharge hemoglobin is at 11.8. Bleeding is completely resolved at this point. She is instructed to hold Eliquis for the next 48 hours and then resume if she sees no more bleeding in her stools. Overall patient is clinically improved and is being discharged home today in stable condition with optimization of multiple underlying comorbidities. Physical Exam Narrative: General: No acute distress, AO x3 HEENT: PERRLA, pupils bilaterally equal and reactive, pallors not present Chest: Normal vesicular breath sounds, no added sounds, equal good air entry bilaterally CVS: S1-S2 regular, no murmurs, no tachycardia, no gallops, no rubs Abdomen: Soft, nontender, no organomegaly, bowel sounds present Neuro: No focal deficits, no facial deformity, AO x3, power 5/5 in all limbs Discharge Data Studies Completed and Pending Completed Studies During Hospitalization Category Date Time Status CT abdomen pelvis con [id number] Stat Cat Scan 12/28/24 17:50 Completed CXRP [XR chest 1V portable [id number]] Routine Exams 12/30/24 11:57 Completed XR abdomen 1V* [id number] Routine Exams 12/30/24 11:59 Completed Pending at discharge Category Date Time Status OVA and Parasites, Conc and PE Routine Lab 12/28/24 22:40 Received Salmonella / Shigella / Campy Routine Lab 12/28/24 22:40 Received Radiology Impressions Abdomen/Pelvis CT 12/28/24 17:50 IMPRESSION: 1. Findings suggestive of a duodenitis. There are multiple dilated loops of small bowel without transition point suggesting an ileus/enteritis. 2. Nonobstructing left nephrolithiasis. 3. Bilateral renal cysts. 4. Abnormal skin thickening involving the lower anterior abdominal wall. Correlation with physical examination recommended to exclude cellulitis. COMMENTS: Consistent with the [employer]'s Incidental Findings Committee white paper (J Am Adam Radiol 2018): Any incidental renal lesion less than 1 cm or classified as too small to characterize, or any incidental cystic renal lesion characterized as simple-appearing, is likely benign. No follow-up imaging is recommended for these lesions per consensus recommendations based on imaging criteria. Chest X-Ray 12/30/24 11:57 Impression: Atherosclerosis and cardiomegaly. Abdomen X-Ray 12/30/24 11:59 Impression: Fecal material in the descending colon and rectosigmoid colon. Laboratory Results WBC 3.42 10^3/uL (3.29-11.43) 01/01/25 02:30 RBC 2.88 10^6/uL (3.85-5.65) L 01/01/25 02:30 Hgb 11.80 g/dL (11.27-16.99) 01/01/25 14:42 Hct 38.3 % (36-47) 01/01/25 14:42 MCV 130.9 fl (85-98) H 01/01/25 02:30 MCH 40.6 pg (27-33) H 01/01/25 02:30 MCHC 31.0 g/dL (30-55) 01/01/25 02:30 RDW 18.6 % (12.1-15.1) H 01/01/25 02:30 Plt Count 123 10^3/cmm (157-399) L 01/01/25 02:30 MPV 9.2 fL (7.4-10.4) 01/01/25 02:30 Neut % (Auto) 64.6 % 01/01/25 02:30 Lymph % (Auto) 19.6 % 01/01/25 02:30 Ector % (Auto) 14.3 % 01/01/25 02:30 Eos % (Auto) 0.6 % 01/01/25 02:30 Baso % (Auto) 0.3 % 01/01/25 02:30 Neut # (Auto) 2.21 10^3/uL (1.8-7.7) 01/01/25 02:30 Lymph # (Auto) 0.7 10^3/uL (0.8-4.8) L 01/01/25 02:30 Ector # (Auto) 0.5 10^3/uL (0.2-0.9) 01/01/25 02:30 Eos # (Auto) 0.0 10^3/uL (0.0-0.8) 01/01/25 02:30 Baso # (Auto) 0.0 10^3/uL (0.0-0.1) 01/01/25 02:30 Nucleated RBC % (auto) 0 % 01/01/25 02:30 Nucleated RBCs # 0.0 /100WBC 01/01/25 02:30 Specimen Type Arterial 12/30/24 12:44 Sample Site Radial, left 12/30/24 12:44 ABG pH 7.27 (7.35-7.45) L 12/30/24 12:44 ABG pCO2 61.4 mmHg (35-45) H* 12/30/24 12:44 ABG pO2 72.8 mmHg (80.0-100.0) L 12/30/24 12:44 ABG HCO3 28.2 mmol/L (22-26) H 12/30/24 12:44 ABG Base Excess 0.2 mmol/L (-2.0-2.0) 12/30/24 12:44 Gustabo Test Pos 12/30/24 12:44 Hematocrit 35.4 % (37-47) L 12/30/24 12:44 O2 Delivery Device Nc 12/30/24 12:44 O2 Liters/Min 4.0 % 12/30/24 12:44 [employer] Teacher ID [place] 12/30/24 12:44 Sodium 146 mmol/L (136-145) H 01/01/25 02:30 Potassium 3.2 mmol/L (3.5-5.1) L 01/01/25 02:30 Chloride 103 mmol/L (98-107) 01/01/25 02:30 Carbon Dioxide 34 mmol/L (22-29) H 01/01/25 02:30 Anion Gap 12.2 (5-19) 01/01/25 02:30 BUN 5 mg/dL (8-23) L 01/01/25 02:30 Creatinine 0.5 mg/dL (0.5-0.9) 01/01/25 02:30 GFR Calculation 123.8 mL/min (90-130) 01/01/25 02:30 Glucose 87 mg/dL (65-115) 01/01/25 02:30 POC Glucose 152 mg/dL (70-110) H 01/01/25 11:22 Estimat Average Glucose 103 12/28/24 18:12 Hemoglobin A1c 5.2 % (4.0-6.0) 12/28/24 18:12 Calculated Osmolality 299 mOsm/kg (285-295) H 01/01/25 02:30 Lactic Acid 1.1 mmol/L (0.5-2.2) 12/28/24 18:12 Calcium 8.2 mg/dL (8.5-10.5) L 01/01/25 02:30 Phosphorus 3.4 mg/dL (2.5-4.5) 12/29/24 04:47 Magnesium 1.9 mg/dL (1.7-2.3) 12/29/24 04:47 Total Bilirubin 0.9 mg/dL (0.15-1.2) 01/01/25 02:30 AST 24 U/L (0-32) 01/01/25 02:30 ALT 17 U/L (0-33) 01/01/25 02:30 Alkaline Phosphatase 65 U/L (35-105) 01/01/25 02:30 C-Reactive Protein 11.9 mg/L (0.0-4.9) H 12/28/24 18:12 NT-Pro-B Natriuret Pep 977 pg/mL (0-125) H 12/30/24 04:53 Total Protein 6.2 g/dL (6.6-8.7) L 01/01/25 02:30 Albumin 3.7 g/dL (3.5-5.2) 01/01/25 02:30 Globulin 2.5 g/dL (1.3-4.6) 01/01/25 02:30 Triglycerides 121 mg/dL (0-150) 12/28/24 18:12 Cholesterol 105 mg/dL (0-200) 12/28/24 18:12 LDL Cholesterol, Calc 18 mg/dL (50-129) L 12/28/24 18:12 HDL Cholesterol 63 mg/dL (60-100) 12/28/24 18:12 LDL/HDL Ratio 0.29 RATIO (0.00-3.22) 12/28/24 18:12 Cholesterol/HDL Ratio 1.67 mg/dL (0.0-4.40) 12/28/24 18:12 Procalcitonin 4.71 ng/mL (0-0.5) H 12/28/24 18:12 TSH 3.23 uIU/mL (0.27-4.20) 12/28/24 18:12 Urine Color Yellow (Yellow) 12/28/24 17:50 Urine Appearance Clear (CLEAR) 12/28/24 17:50 Urine pH 6.0 (5-7) 12/28/24 17:50 Ur Specific Adams 1.028 (1.005-1.030) 12/28/24 17:50 Urine Protein Negative (Negative) 12/28/24 17:50 Urine Glucose (UA) Negative (Normal) 12/28/24 17:50 Urine Ketones Negative (Negative) 12/28/24 17:50 Urine Blood Negative (Negative) 12/28/24 17:50 Urine Nitrate Negative (Negative) 12/28/24 17:50 Urine Bilirubin Negative (Negative) 12/28/24 17:50 Urine Urobilinogen 1.0 mg/dL (Negative) 12/28/24 17:50 Ur Leukocyte Esterase Negative (Negative) 12/28/24 17:50 Urine RBC 3-5 /hpf (0-2) 12/28/24 17:50 Urine WBC 0-5 /hpf (0-5) 12/28/24 17:50 Ur Squamous Epith Cells 0-5 /hpf (0-5) 12/28/24 17:50 Amorphous Sediment Not Reportable 12/28/24 17:50 Urine Bacteria Trace /hpf (NONE) 12/28/24 17:50 Hyaline Casts 0-4 /lpf H 12/28/24 17:50 Digoxin 0.3 ng/mL (0.6-1.2) L 12/30/24 04:53 C. difficile (PCR) Negative (Negative) 01/01/25 01:30 Vitals Last Vital Signs Temp 98.4 F 01/01/25 12:00 Pulse 83 01/01/25 14:00 Resp 24 H 01/01/25 12:00 BP 109/79 01/01/25 12:00 Pulse Ox 94 01/01/25 12:00 O2 Del Method Nasal Cannula 01/01/25 12:00 O2 Flow Rate 2 01/01/25 12:00 FiO2 35 12/30/24 13:23 Discharge Plan Discharge Patient Disposition: Home Condition: Stable Prescriptions: New metoprolol tartrate 50 mg Tablet 75 mg PO BID 30 Days Qty: 90 0RF hydrocodone-acetaminophen 5-325 mg tablet 1 tab PO Q8H PRN (Reason: pain) 3 Days Qty: 9 0RF Continued famotidine 20 mg tablet 20 mg PO BID amiodarone 200 mg tablet 200 mg PO BID colestipol 1 gram tablet 1 g PO DAILY mecobalamin (vitamin B12) 1,000 mcg tablet,chewable 1,000 mcg PO DAILY Qty: 30 5RF Stiolto Respimat 2.5-2.5 mcg/actuation mist 2 puff inhalation DAILY Qty: 4 6RF cilostazol 100 mg Tablet 100 mg PO BID clopidogrel [Plavix] 75 mg Tablet 75 mg PO DAILY pantoprazole 40 mg Tablet,Delayed Release (Dr/Ec) 40 mg PO BID insulin lispro [Humalog KwikPen Insulin] 100 unit/mL Insulin Pen See Rx Instructions .ROUTE .COMPLEX MDD 40 Protocol: Insulin Corrective High-Dose Regimen Condition: Fingerstick Blood Glucose Dose/Route: Insulin Units Condition: 70-130 mg/dl Dose/Route: 0 units/SQ Condition: 131-180 mg/dl Dose/Route: 2 units/SQ Condition: 181-240 mg/dl Dose/Route: 4 units/SQ Condition: 241-300 mg/dl Dose/Route: 6 units/SQ Condition: 301-350 mg/dl Dose/Route: 8 units/SQ Condition: 351-400 mg/dl Dose/Route: 10 units/SQ Rx Instructions: Inject per sliding scale 3 times daily insulin glargine [Lantus Solostar U-100 Insulin] 100 unit/mL (3 mL) Insulin Pen 10 unit SUBCUT BEDTIME fenofibrate 150 mg Capsule 145 mg PO BEDTIME vilazodone [Viibryd] 40 mg Tablet 40 mg PO DAILY levothyroxine 112 mcg Tablet 112 mcg PO QAM Invega Sustenna 234 mg/1.5 mL Syringe 234 mg IM Q30D albuterol sulfate 90 mcg/actuation HFA aerosol inhaler 2 puff INHALATION Q4H PRN (Reason: Shortness Of Breath) potassium chloride 10 mEq capsule, extended release 10 meq PO TID diphenoxylate-atropine 2.5-0.025 mg tablet 2 tab PO QID PRN (Reason: Diarrhea) lisinopril 5 mg tablet 5 mg PO DAILY digoxin 125 mcg (0.125 mg) tablet 125 mcg PO DAILY lovastatin 20 mg tablet 20 mg PO DAILY ondansetron 4 mg tablet,disintegrating 4 mg PO .Q6-8H PRN (Reason: Nausea) fluticasone propionate 50 mcg/actuation spray,suspension 2 spray INTRANASAL DAILY memantine 5 mg tablet 5 mg PO BID Changed bumetanide 2 mg tablet 1 mg PO BID 30 Days Qty: 30 0RF Held isosorbide mononitrate 30 mg Tablet Extended Release 24 Hr 60 mg PO DAILY Hold Instructions: Resume on 01/07/25. hold until cardiology follow up Eliquis 5 mg Tablet 5 mg PO BID Hold Instructions: Resume on 01/03/25. resume on 01/03 if no rectal bleeding diltiazem HCl 240 mg capsule,extended release 24hr 240 mg PO BID Hold Instructions: Resume on 01/07/25. hold until follow up with cardiology Discontinued metoprolol tartrate 100 mg tablet 50 mg PO BID Discharge Orders: Discharge Order (Routine); Ordered 01/01/25 Ordered By: Ranjana Verdugo Referrals: Bethany Gonzalez [employer] PROFESSOR [Primary Care Provider] - (Patient will need to contat office on Friday to make follow up appointment) Discharge Diet: Advance as tolerated and Cardiac Discharge Activity: Increase activity as tolerated Patient Instructions: Dehydration - Adult, Metoprolol (By mouth), Hydrocodone/Acetaminophen (By mouth), Acute Nausea and Vomiting (DC), Vitamin B12 Deficiency (GEN), Duodenitis (DC), Opioid Safety Discharge Attestations Time Spent in Discharge Care*: greater than 30 min Quality Metrics Clinical Quality Measures [ No reported AMI, CVA or VTE this stay] Coding Level of Care Code Acute Code for [facility] Fwd Diagnoses Atrial fibrillation with RVR I48.91 Morbid obesity with BMI of 40.0-44.9, adult E66.01; Z68.41 Folic acid deficiency E53.8 Duodenitis K29.80 Nausea & vomiting R11.2 Dehydration E86.0
== END 2025-01-01 17:25 | disposition home or self-care (01) | DRG 309 ==
LOC: ER 20:55 → CSU 21:12
PROVIDERS: Family Medicine; Admitting Provider Family Medicine; Emergency Provider Student in an Organized Health Care Education/Training Program; PCP Nurse Practitioner Family; Visit Provider Student in an Organized Health Care Education/Training Program
DX: I48.91 Unspecified atrial fibrillation (principal); J96.11 Chronic respiratory failure with hypoxia; K56.7 Ileus, unspecified; J96.12 Chronic respiratory failure with hypercapnia; Z68.41 Body mass index [BMI] 40.0-44.9, adult; E66.01 Morbid (severe) obesity due to excess calories; G47.33 Obstructive sleep apnea (adult) (pediatric); J44.9 Chronic obstructive pulmonary disease, unspecified; K21.9 Gastro-esophageal reflux disease without esophagitis; E03.9 Hypothyroidism, unspecified; E78.5 Hyperlipidemia, unspecified; I10 Essential (primary) hypertension; F03.90 Unspecified dementia, unspecified severity, without behavioral disturbance, psychotic disturbance, mood disturbance, and anxiety; F43.10 Post-traumatic stress disorder, unspecified; F31.9 Bipolar disorder, unspecified; E53.8 Deficiency of other specified B group vitamins; E86.0 Dehydration; K29.80 Duodenitis without bleeding; K59.00 Constipation, unspecified; Z66 Do not resuscitate; E87.70 Fluid overload, unspecified; K52.9 Noninfective gastroenteritis and colitis, unspecified; Z79.01 Long term (current) use of anticoagulants; Z91.198 Patient's noncompliance with other medical treatment and regimen for other reason; Z99.81 Dependence on supplemental oxygen; Z79.02 Long term (current) use of antithrombotics/antiplatelets; Z79.899 Other long term (current) drug therapy; Z79.890 Hormone replacement therapy; Z79.4 Long term (current) use of insulin; Z79.1 Long term (current) use of non-steroidal anti-inflammatories (NSAID); Z88.8 Allergy status to other drugs, medicaments and biological substances; Z88.2 Allergy status to sulfonamides; Z91.041 Radiographic dye allergy status; Z86.73 Personal history of transient ischemic attack (TIA), and cerebral infarction without residual deficits; Z87.891 Personal history of nicotine dependence
CPT/HCPCS: 36415; 36416; 36600; 71045; 74018; 74176; 80053; 80061; 80162; 81001; 82274; 82803; 82962; 83036; 83605; 83630; 83735; 83880; 84100; 84145; 84443; 85014; 85018; 85025; 86140; 87045; 87177; 87209; 87427; 87449; 87493; 93005; 94660; 94664; 96365; 96372; 96375; 96376; 99285; A4222; A9270; J0283; J0744; J1171; J1200; J1815; J2270; J2405; J2470; J2543; J2919; J3490; J7030; J9999